=== PATIENT | female | born 1970 | race Caucasian/White ===

== ENCOUNTER → 2017-10-02 07:45 | Outpatient (CLI) | payer OTHER, SELFPAY ==
--- NOTE | 2017-10-02 07:48 | BI_ITS ---
MAMMOGRAPHY - BILATERAL SCREENING REASON FOR EXAM: Female, 47 years old. Routine annual screening examination. PERTINENT HISTORY: Aunt with breast cancer. TECHNIQUE: Digital bilateral breast noble (3D mammographic acquisition) in the CC and MLO projections. 2-D mediolateral oblique (MLO) and craniocaudad (CC) views of both breasts were obtained. CAD: Full Field Digital Mammography with Computer Added Detection was performed. COMPARISON: Comparison is made with prior study dated September 30, 2016 and September 22, 2015. FINDINGS: Breast Composition: The breasts are heterogeneously dense, which may obscure small masses. There are no dominant masses or suspicious calcifications. Stable benign appearing bilateral axillary lymph nodes. No other significant abnormalities are identified. There has been no significant change since the prior study. BI/SCREENING MAMM (CAD), BILAT IMPRESSION: Stable bilateral screening mammogram. Yearly follow-up mammogram recommended. (A) ASSESSMENT CATEGORY: BIRADS Category 2: Benign. A letter regarding these results will be sent to the patient by the facility within 30 days. Approximately 10% of breast cancers are not detected by mammography. A normal mammogram should not delay biopsy of a clinically suspicious abnormality. [id number] Electronically Signed: Conor Colon MD at 9:51 EDT Tel [phone], Service support ,
== END ==
PROVIDERS: Family Provider Family Medicine; PCP Family Medicine; Visit Provider Obstetrics & Gynecology
DX: Z12.31 Encounter for screening mammogram for malignant neoplasm of breast (principal); Z80.3 Family history of malignant neoplasm of breast
CPT/HCPCS: 77063; 77067

== ENCOUNTER → 2018-02-05 13:09 | Outpatient (CLI) | payer OTHER, SELFPAY ==
[2018-02-05 16:16] LABS: Absolute Lymphocyte Count 3.43 X10^3/ul (0.83-4.51); Absolute Neutrophil Count 6.8 X10^3/uL (2.0-7.7); Basophil# 0.03 X10^3/uL; Basophil% 0.3 % (0-1); Eosinophil# 0.15 X10^3/uL; Eosinophils% 1.4 % (0-5); Hematocrit 49.3 % (37-47); Hemoglobin 16.7 g/dl (12.0-15.0); Lymphocyte # 3.43 X10^3/ul (4.0); Lymphocyte % 31.1 % (19-41); Mean Corp Hgb Conc 33.9 g/gl (32-36); Mean Corpuscular Hgb 32.1 pg (27.0-32.0); Mean Corpuscular Volume 94.8 fL (81-99); Mean Platelet Vol. 10.2 fl (6.2-12.0); Monocyte# 0.61 X10^3/uL; Monocyte% 5.5 % (0-10); Neutrophil # 6.79 X10^3/uL (2.7-7.7); Neutrophil % 61.5 % (47-70); Platelet Count 253 K/mm3 (150-450); RBC Distribution Width CV 12.7 % (11.6-14.6); RBC Distribution Width SD 43.9 fl (35.1-43.9)
[2018-02-05 16:17] LABS: POSITIVE COUNT NO; POSITIVE DIFFERENTIAL NO; POSITIVE MORPHOLOGY NO
[2018-02-05 16:36] LABS: ALB/GLOB Ratio 1.1 RATIO (0.9-2.4); AST(SGOT) 58 U/L (15-37); Alanine Aminotransfer ALT/SGPT 105 U/L (13-56); Albumin, Serum 4.1 g/dL (3.2-5.0); Alkaline Phosphatase 78 U/L (45-117); Anion Gap 10 (5-15); BUN 13 mg/dL (7-18); Chloride 104 mmol/L (98-107); Creatinine, Serum 0.81 mg/dL (0.55-1.02); EST Glomerular Filtration Rate 81 mL/min (>60); Est Glom Filt Rate - Afr Amer 98 mL/min (>60); Globulin 3.9 g/dL (2.2-4.2); Glucose 89 mg/dL (74-106); Potassium 4.1 mmol/L (3.5-5.1); Sodium Level 137 mmol/L (136-145); T4 Free Direct 1.13 ng/dL (0.76-1.46); Thyroid Stim Hormone (TSH) 1.37 uIU/mL (0.358-3.74)
== END ==
PROVIDERS: Visit Provider Family Medicine
DX: R53.83 Other fatigue (principal); R10.9 Unspecified abdominal pain; L74.511 Primary focal hyperhidrosis, face
CPT/HCPCS: 36415; 80053; 84439; 84443; 84480; 85025

== ENCOUNTER → 2018-06-23 08:30 | Outpatient (CLI) | payer OTHER, SELFPAY ==
[2018-06-23 12:09] LABS: Absolute Lymphocyte Count 2.73 X10^3/ul (0.83-4.51); Absolute Neutrophil Count 5.9 X10^3/uL (2.0-7.7); Basophil# 0.04 X10^3/uL; Basophil% 0.4 % (0-1); Eosinophil# 0.16 X10^3/uL; Eosinophils% 1.7 % (0-5); Hematocrit 49.7 % (37-47); Hemoglobin 16.4 g/dl (12.0-15.0); Lymphocyte # 2.73 X10^3/ul (4.0); Lymphocyte % 28.9 % (19-41); Mean Corpuscular Hgb 31.1 pg (27.0-32.0); Mean Corpuscular Volume 94.1 fL (81-99); Mean Platelet Vol. 10.4 fl (6.2-12.0); Monocyte% 6.4 % (0-10); Neutrophil # 5.88 X10^3/uL (2.7-7.7); Neutrophil % 62.3 % (47-70); Platelet Count 301 K/mm3 (150-450); RBC Distribution Width CV 13.5 % (11.6-14.6); RBC Distribution Width SD 45.8 fl (35.1-43.9); Red Blood Count 5.28 M/mm3 (4.2-5.4); White Blood Count 9.4 K/mm3 (4.4-11.0)
[2018-06-23 12:12] LABS: POSITIVE COUNT NO; POSITIVE DIFFERENTIAL NO; POSITIVE MORPHOLOGY NO
[2018-06-23 12:52] LABS: AST(SGOT) 18 U/L (15-37); Alanine Aminotransfer ALT/SGPT 40 U/L (13-56); Albumin, Serum 3.7 g/dL (3.2-5.0); Alkaline Phosphatase 79 U/L (45-117); Amylase 39 U/L (25-115); Anion Gap 8 (5-15); BUN 11 mg/dL (7-18); BUN/Creat Ratio 14.2 RATIO (10-20); Calcium,Total 8.7 mg/dL (8.5-10.1); Chloride 106 mmol/L (98-107); Creatinine, Serum 0.78 mg/dL (0.55-1.02); EST Glomerular Filtration Rate 85 mL/min (>60); Est Glom Filt Rate - Afr Amer 103 mL/min (>60); Globulin 3.6 g/dL (2.2-4.2); Glucose 107 mg/dL (74-106); Lipase 176 U/L (73-393); Potassium 3.5 mmol/L (3.5-5.1); Protein, Total 7.3 g/dL (6.4-8.2); Sodium Level 140 mmol/L (136-145)
--- OUTSIDE RECORDS SUMMARY | 2018-08-25 09:00 | XMS RPT_ITS ---
:1970 Author Organization [facility] Care Team Providers Name Role Phone SOHAIL LIANG MD Attending Unavailable DR. LEXIS BENSON DO Primary Care Unavailable LOCO, KARLA PAC Admitting Unavailable LOCO, KARLA PAC Attending Unavailable LOCO, KARLA PAC Primary Care Unavailable LEXIS BENSON D.O Consulting Unavailable PROVIDER, UNKNOWN Consulting Unavailable WillieysAshaa Attending Unavailable Willieys Lexis Primary Care Unavailable Karen Izaguirre Attending Unavailable Karen Izaguirre Referring Unavailable Malys, Lexis Primary Care Unavailable Malys Lexis Attending Unavailable PROBLEMS PROBLEMS DATE TYPE CONDITION / CODE ATTENDING STATUS SOURCE 06/23/2018 Unknown R10.9 - Malys, Lexis Active [facility] Unspecified Community abdominal pain / Hospital R10.9(ICD-10) Repository 06/23/2018 Unknown R53.83 - Other Malys, Lexis Active [place] fatigue / Community R53.83(ICD-10) Hospital Repository 02/05/2018 Unknown 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, Lexis Active Sahil focal Community hyperhidrosis, Hospital face / Repository L74.511(ICD-10) PROCEDURES PROCEDURES No Procedure Records FoundRESULTS RESULTS CBC W/DIFF, AUTOMATED Collected: 06/23/2018 Status: F Source: [facility] 8:34 AM [facility] [place] TYPE CODE TESTS RESULT OUT OF RANGE REFERENCE UNITS LAB L100.1000 4.4-11.0 K/mm3 Normal WBC 9.4 LAB L100.1200 4.2-5.4 M/mm3 Normal RBC 5.28 LAB L100.1300 12.0-15.0 g/dl High HGB 16.4 LAB L100.1400 37-47 % High HCT 49.7 LAB L100.1500 81-99 fL Normal MCV 94.1 LAB L100.1600 27.0-32.0 pg Normal MCH 31.1 LAB L100.1700 32-36 g/gl Normal MCHC 33.0 LAB L100.1810 11.6-14.6 % Normal RDW CV 13.5 LAB L100.1820 35.1-43.9 fl High RDW SD 45.8 LAB L100.1900 150-450 K/mm3 Normal PLT 301 LAB L100.2000 6.2-12.0 fl Normal MPV 10.4 LAB L100.2100 47-70 % Normal NEUT% 62.3 LAB L100.2200 19-41 % Normal LY% 28.9 LAB L100.2300 0-10 % Normal MONO% 6.4 LAB L100.2400 0-5 % Normal EO% 1.7 LAB L100.2500 0-1 % Normal BASO% 0.4 LAB L100.2550 0.0-0.9 % Normal IM GRAN % 0.300 Result Comment: IG% - Immature Granulocytes (promyelocytes, myelocytes and metamyelocytes) > 1% indicates that a LEFT SHIFT is Present. LAB L100.2620 2.0-7.7 X10 3/uL Normal Absolute Neut 5.9 LAB L100.2720 0.83-4.51 X10 3/ul Normal Absolute Lymph 2.73 Performed By: #### L100.0100 #### [facility] [address] [place], [address] COMPREHENSIVE METABOLIC Collected: 06/23/2018 Status: F Source: [facility] 8:34 AM [facility] [place] TYPE CODE TESTS RESULT OUT OF RANGE REFERENCE UNITS LAB L501.0100 74-106 mg/dL High GLU 107 Result Comment: Fasting Glucose result from 100 to 125 mg/dL suggests IMPAIRED HOMEOSTASIS per A.D.A. criteria. Please note revised GLUCOSE reference range effective 2017. LAB L501.1000 7-18 mg/dL Normal BUN 11 LAB L501.1100 0.55-1.02 mg/dL Normal CREAT,SERUM 0.78 Result Comment: The validity of the calculated GFR AND GFRAA in patients over 70 years has not been determined. Clinical correlation is essential. LAB L501.1110 >60 mL/min Normal EST GFR 85 Result Comment: Non- GFR Calc LAB L501.1115 >60 mL/min Normal EST GFR - AA 103 Result Comment: GFR Calc LAB L501.1300 10-20 RATIO Normal BUN/CRE 14.2 LAB L501.1500 6.4-8.2 g/dL T Normal PROT 7.3 LAB L501.1800 3.2-5.0 g/dL Normal ALB 3.7 LAB L501.1950 2.2-4.2 g/dL Normal GLOB 3.6 LAB L501.2000 0.9-2.4 RATIO Normal A/G 1.0 LAB L501.2200 8.5-10.1 mg/dL CA Normal 8.7 LAB L501.4100 15-37 U/L Normal AST 18 LAB L501.4305 45-117 U/L Normal ALK P 79 LAB L501.4405 13-56 U/L Normal ALT 40 LAB L501.4600 0.20-1.00 mg/dL T Normal BILI 0.30 LAB L501.5300 136-145 mmol/L NA Normal 140 LAB L501.5600 3.5-5.1 mmol/L K Normal 3.5 LAB L501.5900 98-107 mmol/L CL Normal 106 LAB L501.6100 21.0-32.0 mmol/L Normal CO2 26.0 LAB L501.6200 5-15 Normal GAP 8 Performed By: #### L500.4050, L501.2400, L501.2450 #### [facility] [address] [place], [address] AMYLASE Collected: 06/23/2018 Status: F Source: [place] 8:34 AM [facility] [place] TYPE CODE TESTS RESULT OUT OF RANGE REFERENCE UNITS LAB L501.2400 25-115 U/L Normal TASHA 39 Performed By: #### L500.4050, L501.2400, L501.2450 #### [facility] [address] [place], [address] LIPASE Collected: 06/23/2018 Status: F Source: [place] 8:34 AM [facility] [place] TYPE CODE TESTS RESULT OUT OF RANGE REFERENCE UNITS LAB L501.2450 73-393 U/L Normal LIPASE 176 Performed By: #### L500.4050, L501.2400, L501.2450 #### [facility] [address] [place], [address] XR FLUORO < 1HR Observed: 04/03/2018 Status: F Source: [place] TECH TIME 6:08 PM [facility] REPOSITORY ORIGINAL Images acquired, not reported on this accession number. XR KNEE 1 OR 2 Observed: 04/03/2018 Status: F Source: [place] [employer] RIGHT 6:07 PM [facility] REPOSITORY ORIGINAL XR KNEE 1 OR 2 VIEWS RIGHT CLINICAL STATEMENT: Knee surgery. COMPARISON: None FINDINGS: Intraoperative fluoroscopy was provided to guide RIGHT knee surgery. 26.3 seconds of fluoroscopy time was used. Radiation dose: 1.3 mGy One spot image from fluoroscopy was saved. See operative note for additional details. Interpreted By: Nemesio Flores MD Preliminary Report By: Nemesio Flores MD Electronically Signed By: Nemesio Flores MD Dictated Date: 04/04/2018 4:27:16 AM Prelim Date: 04/04/2018 4:27:16 AM Sign Date: 04/04/2018 4:29:22 AM CHEST 2 VIEWS Observed: 03/25/2018 Status: F Source: RGSANDRA ZHENGMAVER[place] 11:51 AM [facility] REPOSITORY [place] [address] Patient: NARCISO AVILES Phone#: : 1970 Age: 47 Gender: F Pt. Type: Out Account: [id number] Location: [facility] Ordering: SOHAIL LIANG Exam Date: 03/25/2018/11:26 Family Phys: LEXIS BENSON Charge Code: 427863 Physician: Lasalle Order #: [id number] DLP Dose#: PROCEDURE: X-RAY CHEST 2 VIEWS COMPARISON: None. INDICATIONS: Surgery clearance FINDINGS: LUNGS: Normal. No significant pulmonary parenchymal abnormalities. VASCULATURE: Normal. Unremarkable pulmonary vasculature. CARDIAC: Normal. No cardiac silhouette abnormality or cardiomegaly. MEDIASTINUM: Normal. No visible mass or adenopathy. PLEURA: Normal. No effusion or pleural thickening. BONES: There are degenerative changes of the spine. OTHER: Negative. CONCLUSION: No acute disease. Dictated by: Joanne Tate MD on 03/25/2018 at 12:36 Approved by: Joanne Tate MD on 03/25/2018 at 12:36 BMP WITH EGFR Collected: 03/25/2018 Status: F Source: RG [place] 11:23 AM [facility] REPOSITORY TYPE CODE TESTS RESULT OUT OF RANGE REFERENCE UNITS LAB BMP with eGFR(LOINC) BMP with eGFR Result Comment: BASIC METABOLIC PANEL LAB SODIUM(LOINC) 136 - 145 mmol/l SODIUM Low 134 LAB POTASSIUM(LOINC) 3.5 - 5.1 mmol/L POTASSIUM 4.0 LAB CHLORIDE(LOINC) 98 - 107 mmol/L CHLORIDE Low 97 LAB CO2(LOINC) 21.0 - mmol/L 31.0 CO2 29.1 LAB GLUCOSE(LOINC) 74 - 106 mg/dl GLUCOSE 104 LAB BUN(LOINC) 6 - 20 mg/dl BUN 14 LAB CREATININE(LOINC) 0.6 - 1.2 mg/dl CREATININE 0.8 LAB CALCIUM(LOINC) 8.6 - mg/dl 10.2 CALCIUM 10.2 LAB ANION GAP(LOINC) 10 - 20 mmol/L ANION GAP 12 LAB AGE(LOINC) years AGE 47 LAB eGFR(LOINC) 60 - 999 ML/MINUTE eGFR >60 LAB eGFR(AA)(LOINC) 60 - 999 ML/MINUTE eGFR(AA) >60 Result Comment: ACCORDING TO THE NATIONAL KIDNEY DISEASE EDUCATION PROGRAM(NKDE), A NORMAL eGFR IS A VALUE GREATER THAN OR EQUAL TO 60 ML/MIN/1.73 SQ METERS. CHRONIC KIDNEY DISEASE: <60mL/MIN/1.73 SQ METERS KIDNEY FAILURE: <15mL/MIN/1.73 SQ METERS THIS TEST SHOULD ONLY BE USED FOR PATIENTS 18 YEARS OF AGE AND OLDER. Performed By: #### [id number] #### [facility] [id number] CBC Collected: 03/25/2018 Status: F Source: RG FRIES 11:23 AM [facility] REPOSITORY TYPE CODE TESTS RESULT OUT OF RANGE REFERENCE UNITS LAB CBC(LOINC) CBC Result Comment: CBC-COMPLETE BLOOD COUNT LAB WBC(LOINC) 4.5 - 10.8 x 10EE3/UL WBC High 11.8 LAB RBC(LOINC) 4.10 - x 10EE6/UL 5.30 RBC High 5.46 LAB HEMOGLOBIN(LOINC 12.0 - g/dl ) 16.0 High HEMOGLOBIN 17.4 LAB HEMATOCRIT(LOINC 34.0 - % ) 46.0 High HEMATOCRIT 50.9 LAB MCV(LOINC) 80 - 99 fl MCV 93 LAB MCH(LOINC) 27 - 33 pg MCH 32 LAB MCHC(LOINC) 32 - 36 X10 3 MCHC 34 LAB RDW/CV(LOINC) 12.0 - % 15.6 RDW/CV 13.1 LAB PLATELET(LOINC) 150 - 450 x10EE3/UL PLATELET 269 LAB MPV(LOINC) 6.6 - 10.5 fl MPV 8.7 Result Comment: AUTOMATED DIFFERENTIAL LAB NEUT %(LOINC) 46.0 - 76.0 % NEUT % 61.7 LAB LYMPH %(LOINC) 20.0 - 45.0 % LYMPH % 28.4 LAB MONOS %(LOINC) 0.0 - 10.0 % MONOS % 8.2 LAB EO %(LOINC) 0.0 - 7.0 % EO % 1.0 LAB BASO %(LOINC) 0.0 - 2.0 % BASO % 0.7 LAB Lymph #(LOINC) 0.80 - 2.80 x10EE3/U L Lymph # High 3.40 LAB Neut #(LOINC) 1.50 - 7.10 x10EE3/U L Neut # High 7.30 LAB Sabine #(LOINC) 0.20 - 1.00 x10EE3/U L Sabine # 1.00 LAB EO #(LOINC) 0.00 - 0.50 x10EE3/U L EO # 0.10 LAB Baso #(LOINC) 0.00 - 0.10 x10EE3/U L Baso # 0.10 LAB MANUAL DIFF(LOINC) MANUAL DIFF N/A LAB MORPHOLOGY(LOINC ) MORPHOLOGY N/A Result Comment: {CD] Performed By: #### [id number] #### [facility],[address] [place] [address] CBC W/DIFF, AUTOMATED Collected: 02/05/2018 Status: F Source: [place] 1:14 PM [facility] [place] [place] TYPE CODE TESTS RESULT OUT OF RANGE REFERENCE UNITS LAB L100.1000 4.4-11.0 K/mm3 Normal WBC 11.0 LAB L100.1200 4.2-5.4 M/mm3 Normal RBC 5.20 LAB L100.1300 12.0-15.0 g/dl High HGB 16.7 LAB L100.1400 37-47 % High HCT 49.3 LAB L100.1500 81-99 fL Normal MCV 94.8 LAB L100.1600 27.0-32.0 pg High MCH 32.1 LAB L100.1700 32-36 g/gl Normal MCHC 33.9 LAB L100.1810 11.6-14.6 % Normal RDW CV 12.7 LAB L100.1820 35.1-43.9 fl Normal RDW SD 43.9 LAB L100.1900 150-450 K/mm3 Normal PLT 253 LAB L100.2000 6.2-12.0 fl Normal MPV 10.2 LAB L100.2100 47-70 % Normal NEUT% 61.5 LAB L100.2200 19-41 % Normal LY% 31.1 LAB L100.2300 0-10 % Normal MONO% 5.5 LAB L100.2400 0-5 % Normal EO% 1.4 LAB L100.2500 0-1 % Normal BASO% 0.3 LAB L100.2550 0.0-0.9 % Normal IM GRAN % 0.200 Result Comment: IG% - Immature Granulocytes (promyelocytes, myelocytes and metamyelocytes) > 1% indicates that a LEFT SHIFT is Present. LAB L100.2620 2.0-7.7 X10 3/uL Normal Absolute Neut 6.8 LAB L100.2720 0.83-4.51 X10 3/ul Normal Absolute Lymph 3.43 Performed By: #### L100.0100 #### [facility] [place], [address] COMPREHENSIVE METABOLIC Collected: 02/05/2018 Status: F Source: [facility] 1:14 PM [facility] [place] TYPE CODE TESTS RESULT OUT OF RANGE REFERENCE UNITS LAB L501.0100 74-106 mg/dL Normal GLU 89 Result Comment: Please note revised GLUCOSE reference range effective 2017. LAB L501.1000 7-18 mg/dL Normal BUN 13 LAB L501.1100 0.55-1.02 mg/dL Normal CREAT,SERUM 0.81 Result Comment: The validity of the calculated GFR AND GFRAA in patients over 70 years has not been determined. Clinical correlation is essential. LAB L501.1110 >60 mL/min Normal EST GFR 81 Result Comment: Non- GFR Calc LAB L501.1115 >60 mL/min Normal EST GFR - AA 98 Result Comment: GFR Calc LAB L501.1300 10-20 RATIO Normal BUN/CRE 16.0 LAB L501.1500 6.4-8.2 g/dL T Normal PROT 8.0 LAB L501.1800 3.2-5.0 g/dL Normal ALB 4.1 LAB L501.1950 2.2-4.2 g/dL Normal GLOB 3.9 LAB L501.2000 0.9-2.4 RATIO Normal A/G 1.1 LAB L501.2200 8.5-10.1 mg/dL CA Normal 9.0 LAB L501.4100 15-37 U/L High AST 58 Result Comment: Slight Hemolysis, Result may be falsely increased. LAB L501.4305 45-117 U/L Normal ALK P 78 LAB L501.4405 13-56 U/L High ALT 105 LAB L501.4600 0.20-1.00 mg/dL Normal T BILI 0.50 LAB L501.5300 136-145 mmol/L Normal NA 137 LAB L501.5600 3.5-5.1 mmol/L Normal K 4.1 Result Comment: Slight Hemolysis, Result may be falsely increased. LAB L501.5900 98-107 mmol/L Normal CL 104 LAB L501.6100 21.0-32.0 mmol/L Normal CO2 23.0 LAB L501.6200 5-15 Normal GAP 10 Performed By: #### L500.4050, L501.9520, L506.0400 #### [facility] [address] [facility] [place], [address] THYROID STIM HORMONE Collected: 02/05/2018 Status: F Source: [place] (TSH) 1:14 PM [facility] [place] TYPE CODE TESTS RESULT OUT OF RANGE REFERENCE UNITS LAB L501.9520 0.358-3.74 uIU/mL Normal TSH 1.37 Performed By: #### L500.4050, L501.9520, L506.0400 #### [facility] [address] [facility], [address] T4 FREE DIRECT Collected: 02/05/2018 Status: F Source: [place] 1:14 PM [facility] [place] TYPE CODE TESTS RESULT OUT OF RANGE REFERENCE UNITS LAB L506.0400 0.76-1.46 ng/dL Normal T4 FREE 1.13 DIRECT Performed By: #### L500.4050, L501.9520, L506.0400 #### [facility] [address] [facility], [address] T3 TOTAL - TRIIODOTHYRONINE Collected: 02/05/2018 Status: F Source: [place] 1:14 PM [facility] TYPE CODE TESTS RESULT OUT OF RANGE REFERENCE UNITS LAB L501.9186 0.6-1.81 ng/mL Normal T3 Total 1.20 Performed By: #### L501.9186 #### [facility] [place], [address] SCREENING MAMM (CAD), Observed: 10/02/2017 Status: F Source: [facility] [place] 7:48 AM [facility] [place] [place] [facility] Imaging Services [address] [place] [address] [place] [address] SCREENING MAMM (CAD), BILAT MR#: [id number] Acct: [id number] Name: NARCISO AVILES Rep #: [id number] : 1970 F 47 From: Conor Colon MD PCP: Lexis Benson DO Status: REG CLI Study: SCREENING MAMM (CAD), BILAT Date of Exam: 10/02/17 Exam# [id number] Ordering Dr: Karen Izaguirre MD MAMMOGRAPHY - BILATERAL SCREENING REASON FOR EXAM: Female, 47 years old. Routine annual screening examination. PERTINENT HISTORY: Aunt with breast cancer. TECHNIQUE: Digital bilateral breast noble (3D mammographic acquisition) in the CC and MLO projections. 2-D mediolateral oblique (MLO) and craniocaudad (CC) views of both breasts were obtained. CAD: Full Field Digital Mammography with Computer Added Detection was performed. COMPARISON: Comparison is made with prior study dated September 30, 2016 and September 22, 2015. FINDINGS: Breast Composition: The breasts are heterogeneously dense, which may obscure small masses. There are no dominant masses or suspicious calcifications. Stable benign appearing bilateral axillary lymph nodes. No other significant abnormalities are identified. There has been no significant change since the prior study. BI/SCREENING MAMM (CAD), BILAT IMPRESSION: Stable bilateral screening mammogram. Yearly follow-up mammogram recommended. (A) ASSESSMENT CATEGORY: BIRADS Category 2: Benign. A letter regarding these results will be sent to the patient by the facility within 30 days. Approximately 10% of breast cancers are not detected by mammography. A normal mammogram should not delay biopsy of a clinically suspicious abnormality. [id number] Electronically Signed: Conor Colon MD at 9:51 EDT Tel [phone], Service support , CC: Lexis Benson DO; Karen Izaguirre MD Paraprofessional Aide: Signed CNPMac Observed: 09/05/2017 Status: COMPLETED Source: [place] 12:00 AM [facility] REPOSITORY Telephone (ASWSTR) NARCISO AVILES ([id number]) 1970 F Date Time Provider Department 09/05/17 LEXIS BENSON ASWSTR During your visit today, we recorded the following information about you: Bay Parrasummer 09/05/2017 2:43 PM Addendum Spoke with patient states she needs to have a colonoscopy done at least every three years due to having family history of colon cancer, scheduled her for a consultation with Tayla Navas on 09/08/2017, patient wants to have Dr. Prado do her procedure Bay Palomares Allergies As of Date: 09/05/2017 (Not on File) Date Reviewed: Never Reviewed Reason for Visit: Colonoscopy Consultation [Other] Problem List As Of Date: 09/05/2017 (None) Encounter Status:Closed by BAY PALOMARES on 09/05/17 ALLERGIES ALLERGIES DATE TYPE / CODE NAME / CODE REACTION SEVERITY SOURCE 03/11/2016 Drug Penicillins/W58059 Rash Unknown [place] Allergy/416 0476(RXNORM) [facility] 481610([facility] ED CT) Repository Drug PENICILLINS Moderate [facility] [place] Allergy/416 (CLASS)/[id number](R ([facility] 779764[facility] Modifier) [facility] ED CT) (Qualifier Repository Value) ENCOUNTERS ENCOUNTERS ADMIT/DISCHARGE ACCOUNT NUMBER ADMITTING ENCOUNTER LOCATION SOURCE CLASS 06/23/2018 [id number] Ambulatory [facility] ding:BFHLAB Repository 04/03/2018/04/03/20 [id number] [facility] Repository 03/25/2018/03/25/20 [id number] LOCO, Ambulatory [facility] [place] 18 [facility] Repository 02/05/[id number] [facility] ding:BFHLAB Repository 10/02/[id number] [facility] ding:OPBI Repository PAYERS PAYERS ENCOUNTER GUARANTOR PAYER SUBSCRIBER SOURCE 06/23/2018 NARCISO [place] [facility] Hamzah Baxter [id number] Insurance:MEDICAL CarpenterDOB: [facility], [place] [id number], Number: Repository [place] [id number]: [id number] Date:2003-07-53[address] () [address] [address]WP: 06/23/2018 [facility]SELF [facility] Number: Effective Repository Date:2018-06-23 04/03/2018 NARCISO [place] [facility] HAMZAH [facility] CARPENTERDOB: Insurance:MEDICAL CARPENTERDOB: [facility] [id number] [id number] Repository BOX Number: [address] [place] [address], [id number] [address] [place] [address]Inp: Date:2018-03-31 [place] [address]Xgz: [id number] () Name:[facility] BOX ()Tel: [phone], [place] [phone] [address]OJ: 03/25/2018 NARCISO [facility] HAMZAH Shiv Diez Jo-Ann CARPENTERDOB: Insurance:MEDICAL CARPENTERDOB: [facility] [id number] [id number] BOX Repository [address] [place] [address], Number: [address] [place] [address] [id number] [place] [id number]: Date:Plan Name: () 02/05/2018 NARCISO [facility] Hamzah Baxter [id number] Insurance:MEDICAL CarpenterDOB: [facility] [place] [place] [id number], Number: [place]ository [place] [id number]: [id number] Date:5926-19-25EE [address] () [address] [address]UR: 02/05/2018 Secondary NOT GIVENUNK Sahil Insurance:SELF PAY [facility] Number: Effective Repository Date:2018-02-05 10/02/2017 NARCISO M Primary Hamzah A Sah[place] [id number] Insurance:MEDICAL Carpst. francis hospitalD[facility]: [facility] [place] [id number], Number: Repository [place] [id number]: [id number] Date:1368-11-33VD [address] () [address] [address]WG: 10/02/2017 Secondary NOT GIVENUNK Sahil Insurance:SELF PAY [facility] Number: Effective Repository Date:2017-09-05
== END ==
PROVIDERS: Family Provider Family Medicine; PCP Family Medicine; Visit Provider Family Medicine
DX: R10.9 Unspecified abdominal pain (principal); R53.83 Other fatigue
CPT/HCPCS: 36415; 80053; 82150; 83690; 85025

== ENCOUNTER → 2018-10-03 07:12 | Outpatient (CLI) | payer OTHER, SELFPAY ==
[2018-07-09 08:56] VITALS: BMI 31.7
--- NOTE | 2018-10-03 07:13 | BI_ITS ---
MAMMOGRAPHY - BILATERAL SCREENING 3-D TOMOSYNTHESIS REASON FOR EXAM: Female, 48 years old. Bilateral Screening 3-D tomosynthesis PERTINENT HISTORY: Maternal aunt at age 60, cousin at age 40 with breast cancer. Injury to right upper outer quadrant-resolved today. No symptoms.. TECHNIQUE: 2-D mammograms and 3-D Tomosynthesis of the breast (s) were performed. CAD was performed. COMPARISON: October 02, 2017. FINDINGS: The breast composition is heterogeneously dense that can obscure small breast masses. Scattered benign calcifications are seen. No dense spiculated masses or suspicious microcalcifications are identified. No architectural distortion is identified. There is no skin thickening or retraction. There has been no significant change since the prior study. BI/SCREEN MAMM (CAD) W/LOUIS BILAT IMPRESSION: No mammographic signs of malignancy. Routine yearly mammograms recommended. ASSESSMENT CATEGORY: BIRADS Category 1: Negative. A letter regarding these results will be sent to the patient by the facility within 30 days. FOLLOW UP RECOMMENDATION: Yearly follow up mammogram recommended. (A) Approximately 10% of breast cancers are not detected by mammography. A normal mammogram should not delay biopsy of a clinically suspicious abnormality. Electronically Signed: Juaquin Lozano MD at 9:30 EDT , Service support ,
== END ==
PROVIDERS: Family Provider Family Medicine; PCP Family Medicine; Referring Provider Obstetrics & Gynecology; Visit Provider Obstetrics & Gynecology
DX: Z12.31 Encounter for screening mammogram for malignant neoplasm of breast (principal)
CPT/HCPCS: 77063; 77067

== ENCOUNTER → 2018-11-19 12:59 | Outpatient (CLI) | payer OTHER, SELFPAY ==
[2018-07-09 08:56] VITALS: BMI 31.7
[2018-11-19 15:25] LABS: Absolute Lymphocyte Count 2.75 X10^3/ul (0.83-4.51); Absolute Neutrophil Count 8.9 X10^3/uL (2.0-7.7); Basophil# 0.03 X10^3/uL; Basophil% 0.2 % (0-1); Eosinophil# 0.14 X10^3/uL; Eosinophils% 1.1 % (0-5); Hematocrit 49.3 % (37-47); Hemoglobin 16.7 g/dl (12.0-15.0); Lymphocyte # 2.75 X10^3/ul (4.0); Lymphocyte % 22.1 % (19-41); Mean Corp Hgb Conc 33.9 g/gl (32-36); Mean Corpuscular Volume 91.5 fL (81-99); Monocyte# 0.61 X10^3/uL; Monocyte% 4.9 % (0-10); Neutrophil # 8.87 X10^3/uL (2.7-7.7); Neutrophil % 71.3 % (47-70); POSITIVE COUNT NO; POSITIVE DIFFERENTIAL NO; POSITIVE MORPHOLOGY NO; Platelet Count 285 K/mm3 (150-450); RBC Distribution Width CV 13.3 % (11.6-14.6); RBC Distribution Width SD 44.1 fl (35.1-43.9); Red Blood Count 5.39 M/mm3 (4.2-5.4); White Blood Count 12.5 K/mm3 (4.4-11.0)
[2018-11-19 15:52] LABS: AST(SGOT) 27 U/L (15-37); Alanine Aminotransfer ALT/SGPT 59 U/L (13-56); Alkaline Phosphatase 80 U/L (45-117); Anion Gap 9 (5-15); BUN 16 mg/dL (7-18); BUN/Creat Ratio 21.1 RATIO (10-20); Calcium,Total 9.2 mg/dL (8.5-10.1); Chloride 104 mmol/L (98-107); Cholesterol 279 mg/dL (200); Creatinine, Serum 0.76 mg/dL (0.55-1.02); EST Glomerular Filtration Rate 87 mL/min (>60); Est Glom Filt Rate - Afr Amer 106 mL/min (>60); Globulin 3.9 g/dL (2.2-4.2); Glucose 102 mg/dL (74-106); High Density Lipoprotein 35 mg/dL; Potassium 3.7 mmol/L (3.5-5.1); Protein, Total 7.9 g/dL (6.4-8.2); Sodium Level 138 mmol/L (136-145); Thyroid Stim Hormone (TSH) 1.28 uIU/mL (0.358-3.74); Triglycerides 262 mg/dL; Very Low Density Lipoprotein 52 mg/dL (5-40)
== END ==
PROVIDERS: Family Provider Family Medicine; PCP Family Medicine; Visit Provider Family Medicine
DX: E78.5 Hyperlipidemia, unspecified (principal); R53.83 Other fatigue
CPT/HCPCS: 36415; 80053; 80061; 84443; 85025

== ENCOUNTER → 2019-03-11 12:05 | Outpatient (CLI) | payer OTHER, SELFPAY ==
[2018-07-09 08:56] VITALS: BMI 31.7
[2019-03-11 16:13] LABS: Absolute Lymphocyte Count 3.17 X10^3/uL (0.83-4.51); Absolute Neutrophil Count 7.2 X10^3/uL (2.0-7.7); Basophil# 0.07 X10^3/uL; Basophil% 0.6 % (0-1); Eosinophil# 0.14 X10^3/uL; Eosinophils% 1.2 % (0-5); Hemoglobin 16.9 g/dL (12.0-15.0); Lymphocyte # 3.17 X10^3/ul (4.0); Lymphocyte % 28.2 % (19-41); Mean Corp Hgb Conc 33.1 g/dL (32-36); Mean Corpuscular Hgb 32.3 pg (27.0-32.0); Mean Corpuscular Volume 97.3 fL (81-99); Mean Platelet Vol. 9.9 fl (6.2-12.0); Monocyte# 0.61 X10^3/uL; Monocyte% 5.4 % (0-10); NRBC Flagged by Analyzer 0 % (0-5); Neutrophil # 7.21 X10^3/uL (2.7-7.7); Neutrophil % 64.1 % (47-70); Platelet Count 304 K/mm3 (150-450); RBC Distribution Width SD 46.9 fl (35.1-43.9); Red Blood Count 5.24 M/mm3 (4.2-5.4); White Blood Count 11.3 K/mm3 (4.4-11.0)
[2019-03-11 16:31] LABS: ALB/GLOB Ratio 1.2 RATIO (0.9-2.4); AST(SGOT) 25 U/L (15-37); Alanine Aminotransfer ALT/SGPT 58 U/L (13-56); Albumin, Serum 4.3 g/dL (3.2-5.0); Alkaline Phosphatase 80 U/L (45-117); Anion Gap 8 (5-15); BUN 13 mg/dL (7-18); BUN/Creat Ratio 17.3 RATIO (10-20); Chloride 105 mmol/L (98-107); Creatinine, Serum 0.75 mg/dL (0.55-1.02); EST Glomerular Filtration Rate 88 mL/min (>60); Est Glom Filt Rate - Afr Amer 106 mL/min (>60); Globulin 3.5 g/dL (2.2-4.2); Glucose 98 mg/dL (74-106); Protein, Total 7.8 g/dL (6.4-8.2); Sodium Level 139 mmol/L (136-145)
== END ==
PROVIDERS: Family Provider Family Medicine; PCP Family Medicine; Visit Provider Family Medicine
DX: Z51.81 Encounter for therapeutic drug level monitoring (principal); D69.2 Other nonthrombocytopenic purpura
CPT/HCPCS: 36415; 80053; 85025; 85610

== ENCOUNTER → 2019-07-01 08:48 | Outpatient (CLI) | payer OTHER, SELFPAY ==
[2019-05-31 10:17] VITALS: BMI 31.7
[2019-07-01 12:29] LABS: Erythrocyte Sedimentation Rate 13 mm/hr (0-20)
[2019-07-01 12:31] LABS: Absolute Lymphocyte Count 2.72 X10^3/uL (0.83-4.51); Absolute Neutrophil Count 7.4 X10^3/uL (2.0-7.7); Basophil# 0.05 X10^3/uL; Basophil% 0.5 % (0-1); Eosinophils% 0.9 % (0-5); Hematocrit 49.8 % (37-47); Hemoglobin 16.3 g/dL (12.0-15.0); Lymphocyte # 2.72 X10^3/ul (4.0); Lymphocyte % 24.9 % (19-41); Mean Corp Hgb Conc 32.7 g/dL (32-36); Mean Corpuscular Hgb 30.6 pg (27.0-32.0); Mean Corpuscular Volume 93.4 fL (81-99); Monocyte# 0.62 X10^3/uL; Monocyte% 5.7 % (0-10); NRBC Flagged by Analyzer 0 % (0-5); Neutrophil # 7.39 X10^3/uL (2.7-7.7); Neutrophil % 67.6 % (47-70); Platelet Count 315 K/mm3 (150-450); RBC Distribution Width CV 13.2 % (11.6-14.6); RBC Distribution Width SD 45.1 fl (35.1-43.9); Red Blood Count 5.33 M/mm3 (4.2-5.4); White Blood Count 10.9 K/mm3 (4.4-11.0)
[2019-07-01 12:48] LABS: ALB/GLOB Ratio 1.2 RATIO (0.9-2.4); AST(SGOT) 23 U/L (15-37); Alanine Aminotransfer ALT/SGPT 42 U/L (13-56); Albumin, Serum 4.4 g/dL (3.2-5.0); Alkaline Phosphatase 85 U/L (45-117); Anion Gap 7 (5-15); BUN 10 mg/dL (7-18); BUN/Creat Ratio 10.2 RATIO (10-20); CRP 3.59 mg/L (0.0-3.0); Calcium,Total 9.4 mg/dL (8.5-10.1); Chloride 103 mmol/L (98-107); Creatinine, Serum 0.98 mg/dL (0.55-1.02); EST Glomerular Filtration Rate 64 mL/min (>60); Est Glom Filt Rate - Afr Amer 78 mL/min (>60); Globulin 3.7 g/dL (2.2-4.2); Glucose 107 mg/dL (74-106); Potassium 3.8 mmol/L (3.5-5.1); Protein, Total 8.1 g/dL (6.4-8.2); Sodium Level 136 mmol/L (136-145)
== END ==
PROVIDERS: PCP Family Medicine; Visit Provider Family Medicine
DX: L03.115 Cellulitis of right lower limb (principal); L02.415 Cutaneous abscess of right lower limb; Z96.651 Presence of right artificial knee joint
CPT/HCPCS: 36415; 80053; 85025; 85652; 86140

== ENCOUNTER → 2019-10-05 07:01 | Outpatient (CLI) | payer OTHER, SELFPAY ==
[2019-05-31 10:17] VITALS: BMI 31.7
--- NOTE | 2019-10-05 07:03 | BI_ITS ---
MAMMOGRAPHY - BILATERAL SCREENING REASON FOR EXAM: Female, 49 years old. Routine annual screening examination. PERTINENT HISTORY: Aunt with breast cancer. TECHNIQUE: Digital bilateral breast louis (3D mammographic acquisition) in the CC and MLO projections. 2-D mediolateral oblique (MLO) and craniocaudad (CC) views of both breasts were obtained. CAD: Full Field Digital Mammography with Computer Added Detection was performed. COMPARISON: Comparison is made with prior examination dated October 03, 2018 and October 02, 2017. FINDINGS: Breast Composition: There are scattered areas of fibroglandular density. There are no dominant masses or suspicious calcifications. Stable benign-appearing bilateral axillary lymph nodes. No other significant abnormalities are identified. There has been no significant change since the prior study. BI/SCREEN MAMM (CAD) W/LOUIS BILAT IMPRESSION: Stable bilateral screening mammogram. Yearly follow-up mammogram recommended. (A) ASSESSMENT CATEGORY: BIRADS Category 2: Benign. A letter regarding these results will be sent to the patient by the facility within 30 days. Approximately 10% of breast cancers are not detected by mammography. A normal mammogram should not delay biopsy of a clinically suspicious abnormality. [id number] Electronically Signed: Conor Colon, at 8:24 EDT , Service support ,
== END ==
PROVIDERS: PCP Family Medicine; Referring Provider Family Medicine; Visit Provider Family Medicine
DX: Z12.31 Encounter for screening mammogram for malignant neoplasm of breast (principal)
CPT/HCPCS: 77063; 77067

== ENCOUNTER → 2020-05-03 08:28 | Outpatient (CLI) | payer OTHER, SELFPAY ==
[2019-05-31 10:17] VITALS: BMI 31.7
--- NOTE | 2020-05-03 08:46 | RAD_ITS ---
STUDY: X-RAY CHEST REASON FOR EXAM: Female, 49 years old. COUGH, MILD CHEST PAIN TECHNIQUE: 2 views COMPARISON: Prior chest radiograph of 04/21/2015 FINDINGS: The lungs are clear and expanded. There is no demonstrated pleural abnormality. Normal size heart. Normal mediastinum and cali. Normal visualized pulmonary arteries. Normal visualized aortic arch and descending thoracic aorta. Minimal degenerative changes of the thoracic spine. Normal visualized ribs, clavicles, and shoulders. There is no demonstrated abnormality of the visualized soft tissue structures of the upper abdomen. RAD/Chest PA and Lateral IMPRESSION: No acute cardiopulmonary findings or changes. Negative for new consolidation, focal atelectasis, pleural effusion or cardiomegaly. Electronically Signed: Shannon Dobbs MD at 16:50 EST , Service support ,
[2020-05-03 12:37] LABS: Absolute Lymphocyte Count 2.87 X10^3/uL (0.83-4.51); Absolute Neutrophil Count 6.1 X10^3/uL (2.0-7.7); Basophil# 0.04 X10^3/uL; Basophil% 0.4 % (0-1); Eosinophil# 0.18 X10^3/uL; Eosinophils% 1.8 % (0-5); Hematocrit 50.2 % (37-47); Hemoglobin 15.8 g/dL (12.0-15.0); Lymphocyte # 2.87 X10^3/ul (4.0); Lymphocyte % 29.5 % (19-41); Mean Corp Hgb Conc 31.5 g/dL (32-36); Mean Corpuscular Hgb 29.9 pg (27.0-32.0); Mean Corpuscular Volume 94.9 fL (81-99); Mean Platelet Vol. 10.3 fl (6.2-12.0); Monocyte% 5.1 % (0-10); NRBC Flagged by Analyzer 0 % (0-5); Neutrophil # 6.11 X10^3/uL (2.7-7.7); Neutrophil % 62.8 % (47-70); Platelet Count 266 K/mm3 (150-450); RBC Distribution Width CV 13.5 % (11.6-14.6); RBC Distribution Width SD 47.8 fl (35.1-43.9); Red Blood Count 5.29 M/mm3 (4.2-5.4); White Blood Count 9.7 K/mm3 (4.4-11.0)
[2020-05-03 12:58] LABS: Vitamin D,25 Hydroxy 12.1 ng/mL
[2020-05-03 13:07] LABS: ALB/GLOB Ratio 1.2 RATIO (0.9-2.4); AST(SGOT) 70 U/L (15-37); Alanine Aminotransfer ALT/SGPT 133 U/L (13-56); Albumin, Serum 4.2 g/dL (3.2-5.0); Alkaline Phosphatase 103 U/L (45-117); Anion Gap 9 (5-15); BUN 11 mg/dL (7-18); BUN/Creat Ratio 13.3 RATIO (10-20); Calcium,Total 9.3 mg/dL (8.5-10.1); Chloride 101 mmol/L (98-107); Creatinine, Serum 0.82 mg/dL (0.55-1.02); EST Glomerular Filtration Rate 79 mL/min (>60); Est Glom Filt Rate - Afr Amer 95 mL/min (>60); Free T3 2.8 pg/mL (2.18-3.98); Globulin 3.6 g/dL (2.2-4.2); Glucose 131 mg/dL (74-106); LDH 243 U/L (84-246); Potassium 3.8 mmol/L (3.5-5.1); Protein, Total 7.8 g/dL (6.4-8.2); Sodium Level 136 mmol/L (136-145); T4 Free Direct 1.26 ng/dL (0.76-1.46); Thyroid Stim Hormone (TSH) 1.43 uIU/mL (0.358-3.74)
[2020-05-04 12:49] LABS: Hemoglobin A1c 5.3 % (3.8-5.6)
== END ==
PROVIDERS: PCP Family Medicine; Referring Provider Family Medicine; Visit Provider Family Medicine
DX: R05 Cough (principal); R07.9 Chest pain, unspecified; R73.09 Other abnormal glucose
CPT/HCPCS: 36415; 71046; 80053; 82306; 83036; 83615; 84439; 84443; 84481; 85025

== ENCOUNTER → 2020-05-29 20:34 | Outpatient (CLI) | payer OTHER, SELFPAY ==
[2019-05-31 10:17] VITALS: BMI 31.7
== END ==
PROVIDERS: PCP Family Medicine; Referring Provider Family Medicine; Visit Provider Family Medicine
DX: G47.10 Hypersomnia, unspecified (principal); R53.83 Other fatigue; I10 Essential (primary) hypertension
CPT/HCPCS: 95810

== ENCOUNTER → 2020-07-06 15:19 | Outpatient (CLI) | payer OTHER, SELFPAY ==
[2020-07-06 14:35] VITALS: BMI 34.2
[2020-07-06 16:42] LABS: Estradiol < 11.0 pg/mL; Follicle Stimulating Hormone 49.6 mIU/mL
== END ==
PROVIDERS: PCP Family Medicine; Referring Provider Obstetrics & Gynecology; Visit Provider Obstetrics & Gynecology
DX: N95.1 Menopausal and female climacteric states (principal)
CPT/HCPCS: 36415; 82670; 83001

== ENCOUNTER 2020-07-28 23:01 | Emergency (ER) | payer OTHER, SELFPAY ==
[2020-07-26 09:12] VITALS: BMI 32.8
[2020-07-28 23:02] VITALS: BP 133/86; PULSE 89; RESP 16; TEMP 36.6; O2SAT 99; BMI 32.6
--- NOTE | 2020-07-28 23:20 | EKG12_ITS ---
Test Reason : MENTAL HEALTH Blood Pressure : / mmHG Vent. Rate : 068 BPM Atrial Rate : 068 BPM P-R Int : 164 ms QRS Dur : 078 ms QT Int : 434 ms P-R-T Axes : 041 013 021 degrees QTc Int : 461 ms Normal sinus rhythm Normal ECG Confirmed by [place] UMANZOR, MARK ([id number]), editor in chief newspaper LULA DE OLIVEIRA ([id number]) on 07/31/2020 10:11:13 AM Referred By: LO Confirmed By:MARK MCPHERSON MD
--- NOTE | 2020-07-28 23:20 | ED.VIS.GEN ---
History of Present Illness Chief Complaint: Mental Health Informant: Patient Onset: Days Context: Gradual Onset Timing: Continuous Current Severity: Moderate Maximum Severity: Severe Narrative: The patient is a 49-year-old female with history of anxiety and depression who presents to the emergency department by [facility] department after suicidal gesture. Patient is awake and alert. She states that she is to the point where she has had thoughts that she does not want to go on living. She had made some threats to family and left her house. Family was able to find her and called police. On police arrival, the patient was found in her car with it running. There was an apple shoved in her exhaust. She did make multiple threats of suicide to police. She does admit to increased suicidality, but states she does not know if she would go through with it. She states that she has been seriously depressed since her father 4 years ago. Prior similar symptoms: Yes Recent Illness/Hospitalization: No Past Medical History - Allergies and Home Meds Allergies/Adverse Reactions: Allergies acetaminophen [From Vicodin] Allergy (Verified 07/28/20 23:08) Unknown hydrocodone [From Vicodin] Allergy (Verified 07/28/20 23:08) Unknown Penicillins [PCN] Allergy (Verified 07/28/20 23:08) Rash Primary Care Physician: Lexis Bneson DO [Primary Care Provider] - Prior records reviewed: Yes Past Medical History: - - Depression anxiety, hypertension Surgical History: noncontributory Smoking Status: Unknown if ever smoked Review of Systems General: Denies: Chills, Fever, Sweats Eyes: Denies: Visual changes - bilaterally, Diplopia ENT: Denies: Rhinorrhea, Sore throat Cardiovascular: Denies: Chest pain, Palpitations Respiratory: Denies: Dyspnea, Cough, Dyspnea on exertion Gastrointestinal: Denies: Abdominal pain, Nausea, Vomiting, Diarrhea, Melena, Hematochezia Genitourinary: Denies: Dysuria, Hematuria, Frequency Musculoskeletal: Denies: Back pain, Extremity Pain Skin: Denies: Rash, Wounds Neurological: Denies: Headache, Weakness, Numbness Psych: Reports: Depression, Anxiety, Suicidal thoughts Physical Exam Vital Signs/Narrative: Vital Signs Temp Pulse Resp BP Pulse Ox 07/28/20 23:02 98 F 89 16 133/86 H 99 Inital Vital Signs reviewed: Yes General: Well nourished, Well developed, No Acute Distress Head: Normocephalic, Atraumatic Eyes: Perrl, EOMI ENT: Moist mucous membranes, No rhinorrhea Neck: Supple, Nontender Cardiovascular: Regular rate, Regular rhythm, No murmurs Respiratory: No distress, CTA bilaterally, Chest nontender Abdomen: Soft, Nontender, Nondistended, Normal bowel sounds Back: Nontender, Normal Inspection Extremities: Nontender, No edema Skin: Normal color, No rash Neurological: Alert, Oriented x3, Cranial nerves II-XII grossly intact, Normal Strength, Normal Sensation Psychological: Normal affect, Normal Mood Diagnostic/Tx/Re-eval Abnormal Lab Results 07/28/20 07/28/20 07/28/20 23:30 23:30 23:30 WBC 10.6 RBC 5.15 Hgb 16.1 H Hct 48.3 H MCV 93.8 MCH 31.3 MCHC 33.3 RDW Std Deviation 47.7 H RDW Coeff of Grady 13.8 Plt Count 281 MPV 10.3 Immature Gran % (Auto) 0.400 Neut % (Auto) 52.6 Lymph % (Auto) 37.9 Dimmit % (Auto) 5.9 Eos % (Auto) 2.6 Baso % (Auto) 0.6 Absolute Neuts (auto) 5.6 Absolute Lymphs (auto) 4.02 Nucleated RBC % 0 VBG Carboxyhemoglobin Sodium 139 Potassium 3.4 L Chloride 104 Carbon Dioxide 29.0 Anion Gap 6 BUN 11 Creatinine 0.77 Estim Creat Clear Calc 74.72 Est GFR (MDRD) Af Amer 102 Est GFR (MDRD) Non-Af 85 BUN/Creatinine Ratio 14.2 Glucose 101 Calcium 9.4 Serum , Qual Urine Opiates Screen Urine Methadone Screen Ur Barbiturates Screen Ur Phencyclidine Scrn Ur Amphetamines Screen U Methamphetamin-MDMA U Benzodiazepines Scrn Urine Cocaine Screen U Cannabinoids Screen Ur Drug Screen Comment Ethyl Alcohol < 3.0 07/28/20 07/28/20 07/28/20 23:30 23:30 23:35 WBC RBC Hgb Hct MCV MCH MCHC RDW Std Deviation RDW Coeff of Grady Plt Count MPV Immature Gran % (Auto) Neut % (Auto) Lymph % (Auto) Dimmit % (Auto) Eos % (Auto) Baso % (Auto) Absolute Neuts (auto) Absolute Lymphs (auto) Nucleated RBC % VBG Carboxyhemoglobin 10.8 H Sodium Potassium Chloride Carbon Dioxide Anion Gap BUN Creatinine Estim Creat Clear Calc Est GFR (MDRD) Af Amer Est GFR (MDRD) Non-Af BUN/Creatinine Ratio Glucose Calcium Serum , Qual NEGATIVE Urine Opiates Screen NEGATIVE Urine Methadone Screen NEGATIVE Ur Barbiturates Screen NEGATIVE Ur Phencyclidine Scrn NEGATIVE Ur Amphetamines Screen NEGATIVE U Methamphetamin-MDMA NEGATIVE U Benzodiazepines Scrn POSITIVE H Urine Cocaine Screen NEGATIVE U Cannabinoids Screen NEGATIVE Ur Drug Screen Comment Ethyl Alcohol - Rhythm Strip Rhythm Strip: Sinus Rhythm Rate: 80 Ectopy: None - EKG Initial EKG Interpretation: Sinus Rhythm, No Acute Injury Pattern Prior: Unchanged - Medical Decision Making The patient presents to the emergency department after suicidal gesture. She had placed an froy on her exhaust and was sitting in a running car. We did obtain carboxyhemoglobin. It was mildly elevated at 10.8. This does not require hyperbaric treatment. She is already been removed from the environment was placed on oxygen. Rest of lab work and EKG are unremarkable. At this point, the patient is medically cleared for psychiatric evaluation. I do feel that she will likely need inpatient psychiatric hospitalization. Impression 1. Suicide attempt ED Disposition - Plan for ED Patient: Referrals: Lexis Benson DO [Primary Care Provider] -
--- NOTE | 2020-07-28 23:37 | ED.RN ---
PORTABLE CO LEVEL OBTAINED AT BEDSIDE READ 12%. MADE AWARE OF RESULTS, VERBALIZED NEED FOR 02. PT PLACED ON OXYGEN
[2020-07-28 23:40] LABS: Absolute Lymphocyte Count 4.02 X10^3/uL (0.83-4.51); Absolute Neutrophil Count 5.6 X10^3/uL (2.0-7.7); Basophil# 0.06 X10^3/uL; Basophil% 0.6 % (0-1); Eosinophil# 0.28 X10^3/uL; Eosinophils% 2.6 % (0-5); Hematocrit 48.3 % (37-47); Hemoglobin 16.1 g/dL (12.0-15.0); Lymphocyte # 4.02 X10^3/ul (4.0); Lymphocyte % 37.9 % (19-41); Mean Corp Hgb Conc 33.3 g/dL (32-36); Mean Corpuscular Hgb 31.3 pg (27.0-32.0); Mean Corpuscular Volume 93.8 fL (81-99); Mean Platelet Vol. 10.3 fl (6.2-12.0); Monocyte# 0.63 X10^3/uL; Monocyte% 5.9 % (0-10); NRBC Flagged by Analyzer 0 % (0-5); Neutrophil # 5.57 X10^3/uL (2.7-7.7); Neutrophil % 52.6 % (47-70); Platelet Count 281 K/mm3 (150-450); RBC Distribution Width CV 13.8 % (11.6-14.6); RBC Distribution Width SD 47.7 fl (35.1-43.9); Red Blood Count 5.15 M/mm3 (4.2-5.4); White Blood Count 10.6 K/mm3 (4.4-11.0)
[2020-07-28 23:53] LABS: Carboxyhemoglobin Frac (CO) 10.8 % (0.0-1.5)
[2020-07-28 23:57] LABS: Anion Gap 6 (5-15); BUN 11 mg/dL (7-18); BUN/Creat Ratio 14.2 RATIO (10-20); Calcium,Total 9.4 mg/dL (8.5-10.1); Chloride 104 mmol/L (98-107); Creatinine, Serum 0.77 mg/dL (0.55-1.02); EST Glomerular Filtration Rate 85 mL/min (>60); Est Glom Filt Rate - Afr Amer 102 mL/min (>60); Estimated Creatinine Clearance 74.72 ml/min; Glucose 101 mg/dL (74-106); Potassium 3.4 mmol/L (3.5-5.1); Sodium Level 139 mmol/L (136-145)
[2020-07-28 23:59] LABS: Internal QC Validated? YES +Cl - CLEAR BKGD; Pregnancy, Serum, hCG Quali. NEGATIVE Negative
[2020-07-29] LABS: Alcohol, Blood (Medical)-Serum < 3.0 mg/dL
[2020-07-29 00:01] LABS: Vista UDS pH Range 5
[2020-07-29 00:02] VITALS: RESP 16
[2020-07-29 00:13] LABS: Amphetamine Urine VISTA NEGATIVE (<1000 ng/mL); Barbiturate Urine VISTA NEGATIVE (< 200 ng/mL); Benzodiazepine Urine VISTA POSITIVE (< 200 ng/mL); Cocaine Urine VISTA NEGATIVE (< 300 ng/mL); Ecstacy Urine VISTA NEGATIVE (< 500 ng/mL); Methadone Urine VISTA NEGATIVE (< 300 ng/mL); PCP Urine VISTA NEGATIVE (< 25 ng/mL); THC Urine VISTA NEGATIVE (< 50 ng/mL)
--- NOTE | 2020-07-29 00:21 | ED.RN ---
PAGED CRISIS AND FAXED THE REPORT
--- NOTE | 2020-07-29 01:32 | ED.RN ---
BEDSIDE CO RECHECKED AND READING SHOWS 6%. PT TO REMAIN ON OXYGEN. WILL RECHECK LEVEL
[2020-07-29 01:38] VITALS: BP 98/63; PULSE 68; RESP 16; O2SAT 100
--- NOTE | 2020-07-29 02:42 | ED.RN ---
PER CRISIS, THIS PT IS REFERRED TO [facility] FOR PLACEMENT
[2020-07-29 03:30] VITALS: RESP 16
[2020-07-29 04:30] VITALS: RESP 16
[2020-07-29 05:33] VITALS: BP 101/57; PULSE 68; RESP 16; O2SAT 94
--- NOTE | 2020-07-29 05:34 | ED.RN ---
attempted to call rn to rn report to [facility], no answer.
--- NOTE | 2020-07-29 07:00 | ED.RN ---
PT SITTING ON EDGE OF BED ASKING IF SHE IS GOING HOME. PT INFORMED BY THIS RN THAT SHE IS PINK SLIPPED AND GOING TO [facility]. PT STATES NO WAY. I'M NOT GOING. GET MY DOCTOR MARIA E RAI HERE NOW. PT INFORMED SHE CAN SPEAK WITH THE ER PHYSICIAN. SPOKE TO PT AND EXPLAINED THE REASON WHY SHE WAS PINK SLIPPED (THAT SHE PLACED AN APPLE IN HER RUNNING CAR'S EXHAUST PIPE). PT STATES THERE IS A DIFFERENCE BETWEEN BEING SUICIDAL AND BEING SUICIDAL AND WANTING TO . I WASN'T GOING TO KILL MYSELF. ASKED THE PATIENT HOW SHE KNEW SHE WASN'T GOING TO KILL HERSELF TO WHICH SHE HAD NO REPLY. PT DEMANDED HER PERSONAL BELONGINGS AND HER . THIS RN EXPLAINED THAT SHE CANNOT HAVE HER PERSONAL BELONGINGS WHILE BEING IN SUICIDAL PRECAUTIONS AND I CALLED HER . PT'S WAS INFORMED THAT HIS WAS UPSET OVER EVERYTHING AND THE PHONE WAS HANDED OVER TO THE PATIENT SO SHE COULD SPEAK TO HIM.
--- NOTE | 2020-07-29 07:19 | ED.RN ---
PT AGAIN ASKING FOR HER PERSONAL BELONGINGS SPECIFICALLY HER PURSE, KEYS AND CELL PHONE. PT INFORMED SHE DID NOT COME WITH ANY OF THOSE ITEMS. PT DEMANDS TO BRING THOS AND HER CIGARETTES AND CALL . THIS RN TOLD HER I WOULD CALL HIM AND RELAY HER REQUESTS. CALLED AND STATES HE WILL BRING CELL PHONE AND CIGARETTES TO FACILITY AND ATTEMPT TO CALL . PT INFORMED OF HIS RESPONSE AND IS UPSET HE CANNOT BEING THEM IMMEDIATELY TO THE ER. TRANSPORTATION IS AT BEDSIDE ATTEMPTING TO LOAD PT ON TO COT. PT CRYING AND CALLING STAFF CONDESCENDING BECAUSE WE DO NOT AGREE WITH HER VIEW OF THE DEFINITION OF SUICIDAL. PT EVENTUALLY GOT ON EMS COT
== END 2020-07-29 07:35 ==
PROVIDERS: Emergency Provider Emergency Medicine; PCP Family Medicine
DX: T58.02XA Toxic effect of carbon monoxide from motor vehicle exhaust, intentional self-harm, initial encounter (principal); Y92.9 Unspecified place or not applicable; F32.9 Major depressive disorder, single episode, unspecified; F41.9 Anxiety disorder, unspecified; I10 Essential (primary) hypertension; Z88.0 Allergy status to penicillin; Z88.5 Allergy status to narcotic agent
CPT/HCPCS: 80048; 80307; 82077; 82375; 84703; 85025; 87426; 93005; 99285

== ENCOUNTER → 2020-10-31 08:03 | Outpatient (CLI) | payer OTHER, SELFPAY ==
[2020-10-19 05:46] VITALS: BMI 33.8
--- NOTE | 2020-10-31 08:05 | BI_ITS ---
MAMMOGRAPHY - BILATERAL SCREENING REASON FOR EXAM: Female, 50 years old. Routine annual screening examination. PERTINENT HISTORY: Aunt with breast cancer. TECHNIQUE: Digital bilateral breast louis (3D mammographic acquisition) in the CC and MLO projections. 2-D mediolateral oblique (MLO) and craniocaudad (CC) views of both breasts were obtained. CAD: Full Field Digital Mammography with Computer Added Detection was performed. COMPARISON: Comparison is made with prior study dated 10/05/2019 and 10/03/2012. FINDINGS: Breast Composition: The breasts are heterogeneously dense, which may obscure small masses. There are no dominant masses or suspicious calcifications. Stable benign appearing bilateral axillary lymph notes. No other significant abnormalities are identified. There has been no significant change since the prior study. BI/SCRN MAMM (CAD)W/LOUIS BILAT IMPRESSION: Stable bilateral screening mammogram. Yearly follow-up mammogram recommended. (A) ASSESSMENT CATEGORY: BIRADS Category 2: Benign. A letter regarding these results will be sent to the patient by the facility within 30 days. Approximately 10% of breast cancers are not detected by mammography. A normal mammogram should not delay biopsy of a clinically suspicious abnormality. [id number] Electronically Signed: Conor Colon MD at 11:27 EDT , Service support ,
== END ==
PROVIDERS: PCP Family Medicine; Referring Provider Family Medicine; Visit Provider Family Medicine
DX: Z12.31 Encounter for screening mammogram for malignant neoplasm of breast (principal)
CPT/HCPCS: 77063; 77067

== ENCOUNTER → 2020-12-05 06:46 | Outpatient (CLI) | payer OTHER, SELFPAY ==
[2020-10-19 05:46] VITALS: BMI 33.8
--- NOTE | 2020-12-05 08:51 | PFTCOMP_ITS ---
COMPLETE PULMONARY FUNCTION TEST INTERPRETATION Brief HPI: Patient is a 50 year old female, currently under the care of Dr. Benson, who presents to [facility] for complete pulmonary function tests secondary to diagnosis of chronic cough. Respiratory therapist reports good effort and reproducible results. Interpretation: Forced expiration spirometry shows no large airways obstructive ventilatory defect with an FEV1 of 114% predicted. There is no significant bronchodilator response by strict ATS criteria. Spirograms are of good quality and plateau normally. The respiratory flow volume loop shows a normal pattern. Lung volumes by body plethysmography show a normal total lung capacity at 5.04 L, 105% predicted. All other lung volumes are within normal limits. Diffusion capacity by carbon monoxide is at the lower limit of normal at 75% predicted. The airway resistance is normal. Compared to previous pulmonary function tests from 07/27/2015, there is been a significant reduction in FVC, FEV1 and DLCO by 27%, 22% and 16% respectively. Impression: Grossly normal pulmonary function test, but does have significant reduction compared to previous testing. Could consider a bronchoprovocation study if asthma is suspected.
== END ==
PROVIDERS: PCP Family Medicine; Referring Provider Family Medicine; Visit Provider Family Medicine
DX: R06.00 Dyspnea, unspecified (principal); R05 Cough; J42 Unspecified chronic bronchitis
CPT/HCPCS: 94060; 94726; 94729

== ENCOUNTER → 2020-12-18 06:48 | Outpatient (CLI) | payer OTHER, SELFPAY ==
[2020-10-19 05:46] VITALS: BMI 33.8
[2020-12-18] MEDS: Methacholine Chloride 18 ml neb kit INHALATION (07:24)
--- NOTE | 2020-12-18 14:27 | BRONCHALL ---
Bronchoprovocation Challenge Bronchoprovocation Challenge Bronchoprovocation Challenge: BRONCHOPROVOCATION STUDY INTERPRETATION Brief HPI: Patient is a 50 year old [female male], currently under the care of Dr. Benson, who presents to [facility] for a bronchoprovocation study secondary to diagnosis of abnormal PFT. Respiratory therapist reports good effort and reproducible results. Interpretation: Initial spirometry showed no large airways obstructive ventilatory defect. The patient was then given increasingly concentrated doses of methacholine in a stepwise/standardized fashion, using a modified ATS protocol.[The patient had a significant reduction in FEV1 by] 27% and a calculated PD20 of 0.397. Impression: This is a positive bronchoprovocation study in the range nonspecific for asthma.
== END ==
PROVIDERS: PCP Family Medicine; Referring Provider Family Medicine; Visit Provider Family Medicine
DX: R05 Cough (principal); R06.00 Dyspnea, unspecified
CPT/HCPCS: 94070; 95070

== ENCOUNTER → 2021-04-17 15:11 | Outpatient (CLI) | payer OTHER, SELFPAY | PROVIDERS: PCP Family Medicine; Referring Provider Nurse Practitioner Women's Health; Visit Provider Nurse Practitioner Women's Health | DX: N89.8 Other specified noninflammatory disorders of vagina (principal) | CPT/HCPCS: 87070; 87205 ==

== ENCOUNTER → 2021-10-01 | Outpatient (CLI) | payer OTHER, SELFPAY ==
--- NOTE | 2021-10-01 16:58 | US_ITS ---
STUDY: THYROID ULTRASOUND REASON FOR EXAM: Female, 51 years old. TSH ABNORMAL,EVALUATE NODULE TECHNIQUE: Ultrasound evaluation of the thyroid was performed with real-time and static esqueda-scale imaging. COMPARISON: None. FINDINGS: RIGHT LOBE: The right lobe of the thyroid gland measures 5.3 x 2.3 cm. There is a heterogeneous echotexture. There are nodules. Largest measures 6 x 7 x 5 mm in the inferior aspect of the gland. The lesion is solid with regular margins and chico nodular doppler flow. LEFT LOBE: The left lobe of the thyroid gland measures 5.2 x 2.1 cm. There is a heterogeneous echotexture. There are nodules. Largest nodule in the inferior pole measures 4.4 x 3 mm.The lesion is solid with regular margins and chico nodular doppler flow. ISTHMUS: The isthmus measures 6 mm. US/Thyroid IMPRESSION: There are RIGHT nodules. This nodule is solid or almost completely solid, hypoechoic, [id number], smoothly marginated and contains no echogenic foci. TI-RADS points: 4. TI-RADS category: TR4. This nodule is moderately suspicious but no FNA or follow-up is necessary given the small size of this nodule. There are left nodules. This nodule is solid or almost completely solid, hypoechoic, [id number], smoothly marginated and contains no echogenic foci. TI-RADS points: 4. TI-RADS category: TR4. This nodule is moderately suspicious but no FNA or follow-up is necessary given the small size of this nodule. Electronically Signed: Blair Iverson MD at 19:05 EDT ,
== END | disposition home or self-care (01) ==
PROVIDERS: PCP Family Medicine; Referring Provider Family Medicine; Visit Provider Family Medicine
DX: E04.1 Nontoxic single thyroid nodule (principal); R79.89 Other specified abnormal findings of blood chemistry
CPT/HCPCS: 76536

== ENCOUNTER 2021-10-30 09:30 | Outpatient (RCR) | payer SELFPAY | END 2021-10-30 23:59 | LOC: DC 09:30 | PROVIDERS: PCP Family Medicine; Referring Provider Family Medicine; Visit Provider Family Medicine | DX: E11.9 Type 2 diabetes mellitus without complications (principal) | CPT/HCPCS: G0108 ==

== ENCOUNTER → 2021-11-01 | Outpatient (CLI) | payer OTHER, SELFPAY ==
--- NOTE | 2021-11-01 07:10 | BI_ITS ---
MAMMOGRAPHY - BILATERAL SCREENING REASON FOR EXAM: Female, 51 years old. Routine annual screening examination. PERTINENT HISTORY: Aunt with breast cancer. TECHNIQUE: Digital bilateral breast louis (3D mammographic acquisition) in the CC and MLO projections. 2-D mediolateral oblique (MLO) and craniocaudad (CC) views of both breasts were obtained. CAD: Full Field Digital Mammography with Computer Added Detection was performed. COMPARISON: Comparison is made with prior study dated 10/31/2020 and 10/05/2019. FINDINGS: Breast Composition: The breasts are heterogeneously dense, which may obscure small masses. There are no dominant masses or suspicious calcifications. Stable bilateral axillary lymph nodes. No other significant abnormalities are identified. There has been no significant change since the prior study. BI/SCRN MAMM (CAD)W/LOUIS BILAT IMPRESSION: Stable bilateral screening mammogram. Yearly follow-up mammogram recommended. (A) ASSESSMENT CATEGORY: BIRADS Category 2: Benign. A letter regarding these results will be sent to the patient by the facility within 30 days. Approximately 10% of breast cancers are not detected by mammography. A normal mammogram should not delay biopsy of a clinically suspicious abnormality. [id number] Electronically Signed: Conor Colon MD at 8:26 EDT ,
== END | disposition home or self-care (01) ==
LOC: OPBI 07:09
PROVIDERS: PCP Family Medicine; Visit Provider Family Medicine
DX: Z12.31 Encounter for screening mammogram for malignant neoplasm of breast (principal)
CPT/HCPCS: 77063; 77067

== ENCOUNTER 2021-11-12 08:54 | Outpatient (RCR) | payer OTHER, SELFPAY | END 2021-11-29 23:59 | LOC: DC 08:54 | PROVIDERS: PCP Family Medicine; Referring Provider Family Medicine; Visit Provider Family Medicine | DX: E11.9 Type 2 diabetes mellitus without complications (principal) | CPT/HCPCS: 97802 ==

== ENCOUNTER → 2022-03-07 | Outpatient (CLI) | payer OTHER, SELFPAY ==
[2022-03-07 08:39] LABS: Free T3 2.9 pg/mL (2.18-3.98); T4 Free Direct 1.14 ng/dL (0.76-1.46); Thyroid Stim Hormone (TSH) 3.33 uIU/mL (0.358-3.74)
[2022-03-07 14:58] LABS: AST(SGOT) 22 U/L (15-37); Alanine Aminotransfer ALT/SGPT 44 U/L (13-56); Albumin, Serum 3.8 g/dL (3.2-5.0); Alkaline Phosphatase 91 U/L (45-117); Anion Gap 7 (5-15); BUN 12 mg/dL (7-18); BUN/Creat Ratio 15.9 RATIO (10-20); Calcium,Total 9.3 mg/dL (8.5-10.1); Chloride 104 mmol/L (98-107); Creatinine, Serum 0.76 mg/dL (0.55-1.02); EST Glomerular Filtration Rate 87 mL/min (>60); Est Glom Filt Rate - Afr Amer 105 mL/min (>60); Glucose 119 mg/dL (74-106); Magnesium 2.4 mg/dL (1.6-2.6); Potassium 3.9 mmol/L (3.5-5.1); Protein, Total 7.8 g/dL (6.4-8.2); Sodium Level 139 mmol/L (136-145)
== END | disposition home or self-care (01) ==
LOC: LAB 06:49
PROVIDERS: PCP Family Medicine; Referring Provider Family Medicine; Visit Provider Family Medicine
DX: E03.9 Hypothyroidism, unspecified (principal); E11.9 Type 2 diabetes mellitus without complications; E05.90 Thyrotoxicosis, unspecified without thyrotoxic crisis or storm; E55.9 Vitamin D deficiency, unspecified
CPT/HCPCS: 36415; 80053; 83735; 84439; 84443; 84481

== ENCOUNTER → 2022-05-20 | Outpatient (CLI) | payer OTHER, SELFPAY ==
[2022-05-20 11:52] LABS: Erythrocyte Sedimentation Rate 17 mm/hr (0-30)
[2022-05-20 12:01] LABS: Vitamin B12 446 pg/mL (211-911)
[2022-05-20 12:04] LABS: Hemoglobin A1c 5.6 % (3.8-5.6)
[2022-05-20 12:10] LABS: AST(SGOT) 38 U/L (15-37); Alanine Aminotransfer ALT/SGPT 82 U/L (13-56); Albumin, Serum 3.7 g/dL (3.2-5.0); Alkaline Phosphatase 83 U/L (45-117); Anion Gap 4 (5-15); BUN 18 mg/dL (7-18); BUN/Creat Ratio 24.1 RATIO (10-20); CRP 4.72 mg/L (0.0-3.0); Calcium,Total 9.2 mg/dL (8.5-10.1); Chloride 105 mmol/L (98-107); Creatinine, Serum 0.75 mg/dL (0.55-1.02); EST Glomerular Filtration Rate 87 mL/min (>60); Est Glom Filt Rate - Afr Amer 106 mL/min (>60); Free T3 3.3 pg/mL (2.18-3.98); Globulin 3.8 g/dL (2.2-4.2); Glucose 118 mg/dL (74-106); Magnesium 2.3 mg/dL (1.6-2.6); Protein, Total 7.5 g/dL (6.4-8.2); Sodium Level 136 mmol/L (136-145); Thyroid Stim Hormone (TSH) 0.92 uIU/mL (0.358-3.74)
[2022-05-20 12:12] LABS: Absolute Lymphocyte Count 3.42 X10^3/uL (0.83-4.51); Absolute Neutrophil Count 7.6 X10^3/uL (2.0-7.7); Basophil# 0.08 X10^3/uL; Basophil% 0.7 % (0-1); Eosinophil# 0.22 X10^3/uL; Eosinophils% 1.8 % (0-5); Hematocrit 46.1 % (37-47); Hemoglobin 15.2 g/dL (12.0-15.0); Lymphocyte # 3.42 X10^3/ul (0.83-4.51); Lymphocyte % 28.4 % (19-41); Mean Corpuscular Hgb 30.5 pg (27.0-32.0); Mean Corpuscular Volume 92.4 fL (81-99); Monocyte# 0.67 X10^3/uL; Monocyte% 5.6 % (0-10); NRBC Flagged by Analyzer 0 % (0-5); Neutrophil # 7.61 X10^3/uL (2.7-7.7); Platelet Count 309 K/mm3 (150-450); RBC Distribution Width CV 13.7 % (11.6-14.6); RBC Distribution Width SD 46.5 fl (35.1-43.9); Red Blood Count 4.99 M/mm3 (4.2-5.4); White Blood Count 12.1 K/mm3 (4.4-11.0)
== END | disposition home or self-care (01) ==
LOC: BFHLAB 08:14
PROVIDERS: PCP Family Medicine; Visit Provider Family Medicine
DX: E05.90 Thyrotoxicosis, unspecified without thyrotoxic crisis or storm (principal); E11.9 Type 2 diabetes mellitus without complications; Z51.81 Encounter for therapeutic drug level monitoring; E55.9 Vitamin D deficiency, unspecified; R25.2 Cramp and spasm
CPT/HCPCS: 36415; 80053; 82607; 83036; 83735; 84439; 84443; 84481; 85025; 85652; 86140

== ENCOUNTER → 2022-07-02 | Outpatient (CLI) | payer OTHER, SELFPAY ==
[2022-07-02 12:36] LABS: Vitamin B12 621 pg/mL (211-911); Vitamin D,25 Hydroxy 25.3 ng/mL
[2022-07-02 12:43] LABS: Ferritin 17 ng/mL (8-252); Iron 83 ug/dL (50-170)
== END | disposition home or self-care (01) ==
LOC: BFHLAB 10:11
PROVIDERS: PCP Family Medicine; Visit Provider Family Medicine
DX: D64.9 Anemia, unspecified (principal); E55.9 Vitamin D deficiency, unspecified; E53.8 Deficiency of other specified B group vitamins; E61.1 Iron deficiency
CPT/HCPCS: 36415; 82306; 82607; 82728; 83540

== ENCOUNTER → 2022-09-24 | Outpatient (CLI) | payer OTHER, SELFPAY ==
[2022-09-24 16:23] LABS: Hemoglobin A1c 5.7 % (3.8-5.6)
[2022-09-24 16:28] LABS: AST(SGOT) 69 U/L (15-37); Alanine Aminotransfer ALT/SGPT 123 U/L (13-56); Albumin, Serum 4.1 g/dL (3.2-5.0); Alkaline Phosphatase 95 U/L (45-117); Anion Gap 6 (5-15); BUN 10 mg/dL (7-18); BUN/Creat Ratio 14.3 RATIO (10-20); Calcium,Total 9.4 mg/dL (8.5-10.1); Chloride 105 mmol/L (98-107); EST Glomerular Filtration Rate 94 mL/min (>60); Est Glom Filt Rate - Afr Amer 114 mL/min (>60); Globulin 4.2 g/dL (2.2-4.2); Glucose 108 mg/dL (74-106); Potassium 3.6 mmol/L (3.5-5.1); Protein, Total 8.3 g/dL (6.4-8.2); Sodium Level 135 mmol/L (136-145); T4 Free Direct 1.52 ng/dL (0.76-1.46); Thyroid Stim Hormone (TSH) 0.55 uIU/mL (0.358-3.74); Vitamin B12 811 pg/mL (211-911); Vitamin D,25 Hydroxy 30.8 ng/mL
== END | disposition home or self-care (01) ==
LOC: BFHLAB 13:04
PROVIDERS: PCP Family Medicine; Referring Provider Family Medicine; Visit Provider Family Medicine
DX: Z51.81 Encounter for therapeutic drug level monitoring (principal); E03.9 Hypothyroidism, unspecified; E53.8 Deficiency of other specified B group vitamins; R73.03 Prediabetes; M25.50 Pain in unspecified joint; E55.9 Vitamin D deficiency, unspecified
CPT/HCPCS: 36415; 80053; 82306; 82607; 83036; 84439; 84443; 84481; 86140

== ENCOUNTER → 2022-11-04 | Outpatient (CLI) | payer OTHER, SELFPAY ==
--- NOTE | 2022-11-04 08:47 | BI_ITS ---
MAMMOGRAPHY - BILATERAL SCREENING REASON FOR EXAM: Female, 52 years old. Routine annual screening examination. PERTINENT HISTORY: Aunt with breast cancer. TECHNIQUE: Digital bilateral breast louis (3D mammographic acquisition) in the CC and MLO projections. 2-D mediolateral oblique (MLO) and craniocaudad (CC) views of both breasts were obtained. CAD: Full Field Digital Mammography with Computer Added Detection was performed. COMPARISON: Comparison is made with prior study dated November 01, 2021 and October 31, 2020. FINDINGS: Breast Composition: The breasts are heterogeneously dense, which may obscure small masses. There are no dominant masses or suspicious calcifications. Stable benign-appearing bilateral axillary lymph nodes. No other significant abnormalities are identified. There has been no significant change since the prior study. BI/SCRN MAMM (CAD)W/LOUIS BILAT IMPRESSION: Stable bilateral screening mammogram. Yearly follow-up mammogram recommended. (A) ASSESSMENT CATEGORY: BIRADS Category 2: Benign. A letter regarding these results will be sent to the patient by the facility within 30 days. Approximately 10% of breast cancers are not detected by mammography. A normal mammogram should not delay biopsy of a clinically suspicious abnormality. [id number] Electronically Signed: Conor Colon MD at 10:09 EDT ,
== END | disposition home or self-care (01) ==
LOC: OPBI 08:45
PROVIDERS: PCP Family Medicine; Referring Provider Family Medicine; Visit Provider Family Medicine
DX: Z12.31 Encounter for screening mammogram for malignant neoplasm of breast (principal); Z80.3 Family history of malignant neoplasm of breast
CPT/HCPCS: 77063; 77067

== ENCOUNTER → 2022-12-16 | Outpatient (CLI) | payer OTHER, SELFPAY ==
--- NOTE | 2022-12-16 15:33 | RAD_ITS ---
EXAM: XR CERVICAL SPINE, 4 OR 5 VIEWS CLINICAL INDICATION: NECK/UPPER BACK PAIN TECHNIQUE: Frontal, lateral and bilateral oblique views of the cervical spine. COMPARISON: No relevant prior studies available. FINDINGS: VERTEBRAE: Unremarkable. Preserved vertebral body height. No acute fracture. No spondylolisthesis. Preservation of the normal cervical lordosis. No significant facet arthropathy. DISC SPACES: Unremarkable. Disc spaces are maintained. SOFT TISSUES: Unremarkable. No prevertebral soft tissue widening. LUNG APICES: Clear. RAD/Cerv Spine 4 or 5 Views IMPRESSION: No evidence of acute fracture or spondylolisthesis. Electronically Signed: Gianfranco Martinez MD at 23:54 EDT ,
--- NOTE | 2022-12-16 15:33 | RAD_ITS ---
EXAM: XR RIGHT SHOULDER COMPLETE, 2 OR MORE VIEWS CLINICAL INDICATION: PAIN TECHNIQUE: Two or more views of the right shoulder. COMPARISON: No relevant prior studies available. FINDINGS: BONES/JOINTS: Unremarkable. No acute fracture. No subluxation. Normal alignment. Preservation of the joint space. No sclerotic or destructive changes observed. SOFT TISSUES: Unremarkable. No soft tissue swelling or gas. No radiopaque foreign body. RAD/Shoulder min 2 Views IMPRESSION: Negative right shoulder x-rays. Electronically Signed: Gianfranco Martinez MD at 23:59 EDT ,
== END | disposition home or self-care (01) ==
PROVIDERS: PCP Family Medicine; Referring Provider Family Medicine; Visit Provider Family Medicine
DX: M54.2 Cervicalgia (principal); M25.511 Pain in right shoulder
CPT/HCPCS: 72050; 73030

== ENCOUNTER 2023-01-16 08:00 | Outpatient (RCR) | payer OTHER, SELFPAY ==
--- NOTE | 2022-12-24 10:03 | HP.PTEVAL_ITS ---
Patient's Visit Information Visit Information Visit Information: NARCISO AVILES is a 52 year old F referred to Physical Therapy by Dr. Lexis Benson DO with a diagnosis of Cervicalgia. Date of Evaluation: 12/24/22 Physical Therapist: Enedina Brunson DPT Visit Plan Frequency: 2x /Week Duration: 4 Weeks Plan: Focus on scapular strength/stabilization for posture- modality of US, TENS and manual traction prior to trial of mechanical traction PRN- reduce radicular s/s HEP Given IE: Posture, Scapular retraction, bilateral ER, corner stretch, upper trap stretch, levator stretch, supine chin tucks. Subjective Subjective: She has had neck and right arm pain for about 6 weeks. She has had this before and it was both sides all the way and it comes and goes- if she does anything extra or strenuous it flares up. 6 weeks ago she was moving stuff around and it flared up. Pain is down the neck and under the right shoulder blade- down the upper trap and down the whole arm and includes the whole hand. Worst in the last 48 hours: 210 in the last week: 11/09 Agg: driving, lifting (cat liter). Eases: lacrosse ball, ice Best: 09/09. Describes the pain as sharp/shooting and dull and achy. This pain is constant and she has very little relief. Sharp more active and dull achy when sitting around. N/T in fingers that comes and goes-25% of the time. X-ray of the Cervical Spine (Results: No evidence of acute fracture or spondylolisthesis.) X-ray of the Right Shoulder (Results: Negative right shoulder x-rays.). No MRI. She does have injections- the last one was 12/16/[address] Zendejas- trigger points. No medication for the pain just does Advil/Tylenol combo. Sleep: disturbed- all over the place- hard to get comfortable and will wake her up. 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 No Trauma or MVA's that she can think. No blurred vision or dizziness. Does have REED a lot- she has been going to [facility] for years. She does not feel like its helping. REED are back of the eyes or tension along the occiput- up to 3x a week- no medication. PMHx: HTN, IBS, OCD, GERD, Anxiety, Hashimotos, Sleep Apnea, Left and Right TKR (partials) Meds: Anucort- HC, dilTiazern, escitalopram, methimazole, omeprazole, sucralfate. Objective Objective: Posture: FH, RS- can correct with verbal and tactile cues but does not main Gait: fair posture but still FH, RS- good arm swing and trunk rotation Palpation: tender along medial scapula on right, parapsinals from occiput to C7, upper trap to AC joint and into the biciptal groove ROM: WFL in all planes of the cervical and UE Strength: Cervical isometric: 4+/5, Scap: fair minus, Shoulder: 4+/5, Elbow: 4+/5, Ross Furnace Operator:60/40 right hand dominate Flex: UT: moderate Levator: moderate Sensation: WNL to gross touch bilateral UE Special Test: Distraction: decrease s/s Compression: no change in s/s Special Tests R Shoulder Empty Can - SS: Negative R Shoulder Neer - Impingement: Negative R Shoulder Goldstein Eduardo - Impingement: Negative Balance/Special Test Scores Oswestry Neck Score: 20 Goals Goal 1:: Patient will be I with HEP and progression Goal Time Frame: 4-6 Weeks Goal 2:: Patient will maintain proper posture t/o tx session to demo increased scap s/s Goal Time Frame: 4-6 Weeks Goal 3:: Patient will report no radicular s/s for 1 week Goal Time Frame: 4-6 Weeks Goal 4:: Patient will report 80% improvement Goal Time Frame: 4-6 Weeks Goal 5:: Patient will report no REED for 1 week Goal Time Frame: 4-6 Weeks Rehabilitation Potential Physical Therapy Diagnosis: Patient presents with hypomobility- she has decreased scapular s/s and muscular endurance leading to poor posture leading to radicular symptoms, REED and increased pain with ADLs. Rehabilitation Potential: Good Anticipated Interventions Patient/Client Instruction: Educate patient on: Benefits of Fitness Program Therapeutic Exercise to Include: Strength training, Endurance training, Coordination, Body mechanics, Postural training, Flexibilty training, Neuromotor development, Passive ROM, Active ROM, Dynamic Lumbar Stabilization and Scapular Strength/Stabilization For the Purpose of:: To improve muscle performance and motor function Manual Therapy Techniques to Include: Mobilization and Soft tissue mobilization TENS: Yes Cryotherapy (ice pack, ice massage): Yes Ultrasound (thermal/non thermal): Yes Intermittent cervical traction: Yes (Trial Manual Traction First) Text: Thank you for the opportunity to evaluate your patient. For Medicare and Medicare HMO plans, please review the plan of care and approve it. It will need to be FAXED BACK to us at [phone] for Medicare purposes. For Medicare only, by signing this I certify the plan of care. Please let me know if there are questions or concerns regarding this plan of care. Physician Signature: __Date:
--- NOTE | 2023-02-27 17:18 | HP.PT.NRP ---
Patient Information Patient Information: NARCISO AVILES was seen in my office for initial evaluation on 12/24/22. The following Plan of Care was established for this patient: POC Established Initial Frequency: 2x /Week Initial Duration: 4 Weeks Anticipated Interventions Patient/Client Instruction: Educate patient on: Benefits of Fitness Program Therapeutic Exercise to Include: Strength training, Endurance training, Coordination, Body mechanics, Postural training, Flexibilty training, Neuromotor development, Passive ROM, Active ROM, Dynamic Lumbar Stabilization and Scapular Strength/Stabilization For the Purpose of:: To improve muscle performance and motor function Manual Therapy Techniques to Include: Mobilization and Soft tissue mobilization TENS: Yes Cryotherapy (ice pack, ice massage): Yes Ultrasound (thermal/non thermal): Yes Intermittent cervical traction: Yes (Trial Manual Traction First) Last Seen Last Seen: This patient was last seen in our office . Pertinent comments regarding their Physical therapy will appear below: Patient has not attended PT for over 30 days- appropriate for d/c and return to MD for further evaluation as needed At this point I will be discontinuing this patient from physical therapy. I would be happy to see this patient again in the future if found appropriate by the physician. Thank you! Enedina Brunson, THANG Balance/Gait/Functional tests Balance/Special Test Scores Oswestry Neck Score: 20
== END 2023-01-16 19:00 | disposition home or self-care (01) ==
LOC: PT 08:00
PROVIDERS: PCP Family Medicine; Referring Provider Family Medicine; Visit Provider Family Medicine
DX: M54.2 Cervicalgia (principal); M54.9 Dorsalgia, unspecified; R20.2 Paresthesia of skin
CPT/HCPCS: 97110; 97162

== ENCOUNTER → 2023-01-29 | Outpatient (CLI) | payer OTHER, SELFPAY ==
[2023-01-29 13:17] LABS: ALB/GLOB Ratio 1.1 RATIO (0.9-2.4); AST(SGOT) 32 U/L (15-37); Alanine Aminotransfer ALT/SGPT 61 U/L (13-56); Albumin, Serum 3.9 g/dL (3.2-5.0); Alkaline Phosphatase 90 U/L (45-117); Anion Gap 8 (5-15); BUN 13 mg/dL (7-18); BUN/Creat Ratio 15.5 RATIO (10-20); Chloride 104 mmol/L (98-107); Creatinine, Serum 0.84 mg/dL (0.55-1.02); EST Glomerular Filtration Rate 76 mL/min (>60); Est Glom Filt Rate - Afr Amer 92 mL/min (>60); Free T3 2.6 pg/mL (2.18-3.98); Globulin 3.5 g/dL (2.2-4.2); Glucose 128 mg/dL (74-106); Potassium 3.8 mmol/L (3.5-5.1); Protein, Total 7.4 g/dL (6.4-8.2); Sodium Level 137 mmol/L (136-145); T4 Free Direct 1.11 ng/dL (0.76-1.46); Thyroid Stim Hormone (TSH) 1.17 uIU/mL (0.358-3.74)
== END | disposition home or self-care (01) ==
LOC: BFHLAB 09:25
PROVIDERS: PCP Family Medicine; Referring Provider Family Medicine; Visit Provider Family Medicine
DX: E03.9 Hypothyroidism, unspecified (principal); R74.8 Abnormal levels of other serum enzymes; Z51.81 Encounter for therapeutic drug level monitoring
CPT/HCPCS: 36415; 80053; 84439; 84443; 84481

== ENCOUNTER → 2023-03-24 | Outpatient (CLI) | payer OTHER, SELFPAY ==
[2023-03-24 12:18] LABS: Absolute Lymphocyte Count 3.28 X10^3/uL (0.83-4.51); Absolute Neutrophil Count 6.1 X10^3/uL (2.0-7.7); Basophil# 0.07 X10^3/uL; Basophil% 0.7 % (0-1); Hemoglobin 15.1 g/dL (12.0-15.0); Lymphocyte # 3.28 X10^3/ul (0.83-4.51); Lymphocyte % 32.2 % (19-41); Mean Corp Hgb Conc 32.1 g/dL (32-36); Mean Corpuscular Hgb 30.1 pg (27.0-32.0); Mean Corpuscular Volume 93.6 fL (81-99); Mean Platelet Vol. 11.1 fl (6.2-12.0); Monocyte# 0.55 X10^3/uL; Monocyte% 5.4 % (0-10); NRBC Flagged by Analyzer 0 % (0-5); Neutrophil # 6.05 X10^3/uL (2.7-7.7); Neutrophil % 59.2 % (47-70); Platelet Count 324 K/mm3 (150-450); RBC Distribution Width CV 14.7 % (11.6-14.6); Red Blood Count 5.02 M/mm3 (4.2-5.4); White Blood Count 10.2 K/mm3 (4.4-11.0)
[2023-03-24 12:35] LABS: Hemoglobin A1c 5.1 % (3.8-5.6)
[2023-03-24 12:59] LABS: ALB/GLOB Ratio 0.9 RATIO (0.9-2.4); AST(SGOT) 17 U/L (15-37); Alanine Aminotransfer ALT/SGPT 33 U/L (13-56); Albumin, Serum 3.5 g/dL (3.2-5.0); Alkaline Phosphatase 109 U/L (45-117); Anion Gap 7 (5-15); BUN 11 mg/dL (7-18); BUN/Creat Ratio 14.8 RATIO (10-20); Calcium,Total 8.6 mg/dL (8.5-10.1); Chloride 104 mmol/L (98-107); Creatinine, Serum 0.74 mg/dL (0.55-1.02); EST Glomerular Filtration Rate 88 mL/min (>60); Est Glom Filt Rate - Afr Amer 106 mL/min (>60); Globulin 3.8 g/dL (2.2-4.2); Glucose 106 mg/dL (74-106); Potassium 3.5 mmol/L (3.5-5.1); Protein, Total 7.3 g/dL (6.4-8.2); Sodium Level 139 mmol/L (136-145); Thyroid Stim Hormone (TSH) 2.07 uIU/mL (0.358-3.74)
== END | disposition home or self-care (01) ==
LOC: BFHLAB 08:47
PROVIDERS: PCP Family Medicine; Referring Provider Family Medicine; Visit Provider Family Medicine
DX: E03.9 Hypothyroidism, unspecified (principal); R73.01 Impaired fasting glucose; R74.8 Abnormal levels of other serum enzymes; Z51.81 Encounter for therapeutic drug level monitoring
CPT/HCPCS: 36415; 80053; 83036; 84439; 84443; 84481; 85025

== ENCOUNTER → 2023-06-18 | Outpatient (CLI) | payer OTHER, SELFPAY ==
--- NOTE | 2023-06-18 14:36 | CT_ITS ---
EXAM: CT MAXILLOFACIAL WITHOUT INTRAVENOUS CONTRAST CLINICAL INDICATION: CHRONIC SINUSITIS TECHNIQUE: Helically acquired images were obtained of the face without intravenous contrast. This CT exam was performed using one or more of the following dose reduction techniques: automated exposure control, adjustment of the mA and/or kV according to patient size, and/or use of iterative reconstruction technique. COMPARISON: No relevant prior studies available. FINDINGS: BONES/JOINTS: No acute facial or orbital fracture. SOFT TISSUES: Normal. No focal subcutaneous swelling. No discrete fluid collections. ORBITS: Normal. Both globes are unremarkable. Extraocular muscles are normal. Retrobulbar fat appears unremarkable. SINUSES: Paranasal sinuses are clear. Mild deviation of the nasal septum to the left of midline. No pedro bullosa. MASTOID AIR CELLS: Unremarkable as visualized. Clear. CT/Sinus/Facial Bone IMPRESSION: No evidence of acute or chronic sinusitis. Mild deviation of the nasal septum. Electronically Signed: Duane Romero MD at 11:05 EST ,
== END | disposition home or self-care (01) ==
LOC: CT 14:35
PROVIDERS: PCP Family Medicine; Referring Provider Otolaryngology; Visit Provider Otolaryngology
DX: J32.8 Other chronic sinusitis (principal)
CPT/HCPCS: 70486

== ENCOUNTER → 2023-08-25 | Outpatient (CLI) | payer OTHER, SELFPAY ==
[2023-08-25 15:56] LABS: Erythrocyte Sedimentation Rate 15 mm/hr (0-30)
[2023-08-25 16:01] LABS: Absolute Neutrophil Count 5.6 X10^3/uL (2.0-7.7); Basophil# 0.08 X10^3/uL; Basophil% 0.8 % (0-1); Eosinophil# 0.26 X10^3/uL; Eosinophils% 2.5 % (0-5); Hemoglobin 14.8 g/dL (12.0-15.0); Lymphocyte % 37.1 % (19-41); Mean Corp Hgb Conc 32.2 g/dL (32-36); Mean Corpuscular Hgb 29.1 pg (27.0-32.0); Mean Corpuscular Volume 90.4 fL (81-99); Monocyte# 0.61 X10^3/uL; Monocyte% 5.8 % (0-10); NRBC Flagged by Analyzer 0 % (0-5); Neutrophil # 5.63 X10^3/uL (2.7-7.7); Neutrophil % 53.6 % (47-70); Platelet Count 309 K/mm3 (150-450); RBC Distribution Width CV 14.2 % (11.6-14.6); RBC Distribution Width SD 47.3 fl (35.1-43.9); Red Blood Count 5.09 M/mm3 (4.2-5.4); White Blood Count 10.5 K/mm3 (4.4-11.0)
[2023-08-25 16:10] LABS: Hemoglobin A1c 5.4 % (3.8-5.6)
[2023-08-25 16:40] LABS: ALB/GLOB Ratio 1.1 RATIO (0.9-2.4); AST(SGOT) 27 U/L (15-37); Alanine Aminotransfer ALT/SGPT 41 U/L (13-56); Albumin, Serum 4.1 g/dL (3.2-5.0); Alkaline Phosphatase 97 U/L (45-117); Anion Gap 7 (5-15); BUN 9 mg/dL (7-18); CRP < 2.90 mg/L (0.0-3.0); Calcium,Total 9.3 mg/dL (8.5-10.1); Chloride 106 mmol/L (98-107); Creatinine, Serum 0.75 mg/dL (0.55-1.02); EST Glomerular Filtration Rate 87 mL/min (>60); Est Glom Filt Rate - Afr Amer 105 mL/min (>60); Free T3 2.6 pg/mL (2.18-3.98); Globulin 3.6 g/dL (2.2-4.2); Glucose 101 mg/dL (74-106); Potassium 3.9 mmol/L (3.5-5.1); Protein, Total 7.7 g/dL (6.4-8.2); Sodium Level 137 mmol/L (136-145); T4 Free Direct 1.02 ng/dL (0.76-1.46); Thyroid Stim Hormone (TSH) 2.26 uIU/mL (0.358-3.74)
== END | disposition home or self-care (01) ==
PROVIDERS: PCP Family Medicine; Referring Provider Family Medicine; Visit Provider Family Medicine
DX: E03.9 Hypothyroidism, unspecified (principal); R73.01 Impaired fasting glucose; Z51.81 Encounter for therapeutic drug level monitoring; R74.8 Abnormal levels of other serum enzymes
CPT/HCPCS: 36415; 80053; 83036; 84439; 84443; 84481; 85025; 85652; 86140

== ENCOUNTER → 2023-08-28 | Outpatient (CLI) | payer OTHER, SELFPAY ==
--- NOTE | 2023-08-28 15:49 | US_ITS ---
STUDY: THYROID ULTRASOUND REASON FOR EXAM: Female, 52 years old. THYROID NODULES TECHNIQUE: Ultrasound evaluation of the thyroid was performed with real-time and static esqueda-scale imaging. COMPARISON: Comparison is made with prior study of October 01, 2021. FINDINGS: RIGHT LOBE: The right lobe of the thyroid gland measures 4.8 cm x 1.5 cm x 2.1 cm. There is a heterogeneous echotexture. There are multiple subcentimeter solid nodules. The largest nodule measures 5 mm x 4 mm x 3 mm. This is in the mid pole. LEFT LOBE: The left lobe of the thyroid gland measures 4.2 cm x 1.7 cm x 1.5 cm. There is a heterogeneous echotexture. Multiple subcentimeters solid nodules are seen. The largest is in the mid pole and measures 3 mm x 3 mm x 3 mm. ISTHMUS: The isthmus measures 5.2 mm. The regional lymph nodes are normal. US/Thyroid IMPRESSION: Heterogeneous appearance of both lobes of the thyroid gland. Stable multiple subcentimeter solid nodules. Electronically Signed: Conor Colon MD at 10:43 EDT ,
== END | disposition home or self-care (01) ==
LOC: US 15:48
PROVIDERS: PCP Family Medicine; Referring Provider Family Medicine; Visit Provider Family Medicine
DX: E04.2 Nontoxic multinodular goiter (principal)
CPT/HCPCS: 76536

== ENCOUNTER → 2023-11-07 | Outpatient (CLI) | payer OTHER, SELFPAY ==
--- NOTE | 2023-11-07 10:20 | BI_ITS ---
MAMMOGRAPHY - BILATERAL SCREENING REASON FOR EXAM: Female, 53 years old. Routine annual screening examination. PERTINENT HISTORY: Aunt with breast cancer. TECHNIQUE: Digital bilateral breast louis (3D mammographic acquisition) in the CC and MLO projections. 2-D mediolateral oblique (MLO) and craniocaudad (CC) views of both breasts were obtained. CAD: Full Field Digital Mammography with Computer Added Detection was performed. COMPARISON: Comparison is made with prior study dated November 04, 2022 and November 01, 2021. FINDINGS: Breast Composition: The breasts are heterogeneously dense, which may obscure small masses. There are no dominant masses or suspicious calcifications. Stable bilateral axillary lymph nodes. No other significant abnormalities are identified. There has been no significant change since the prior study. BI/SCRN MAMM (CAD)W/LOUIS BILAT IMPRESSION: Stable bilateral screening mammogram. Yearly follow-up mammogram recommended. (A) ASSESSMENT CATEGORY: BIRADS Category 2: Benign. A letter regarding these results will be sent to the patient by the facility within 30 days. Approximately 10% of breast cancers are not detected by mammography. A normal mammogram should not delay biopsy of a clinically suspicious abnormality. [id number] Electronically Signed: Conor Colon MD at 11:18 EDT ,
== END | disposition home or self-care (01) ==
LOC: OPBI 10:19
PROVIDERS: PCP Family Medicine; Referring Provider Family Medicine; Visit Provider Family Medicine
DX: Z12.31 Encounter for screening mammogram for malignant neoplasm of breast (principal); Z80.3 Family history of malignant neoplasm of breast
CPT/HCPCS: 77063; 77067

== ENCOUNTER → 2023-12-03 | Outpatient (CLI) | payer OTHER, SELFPAY ==
--- NOTE | 2023-12-03 12:53 | RAD_ITS ---
STUDY: X-RAY - RIGHT FOOT CLINICAL: Female, 53 years old. RIGHT LATERAL FOOT PAIN TECHNIQUE: 3 view(s) of the foot. COMPARISON: None. FINDINGS: Normal talus, calcaneus, and tarsal bones. Normal visualized subtalar, talonavicular, calcaneocuboid, tarsal and tarsometatarsal articulations. Normal metatarsi. Normal metatarsophalangeal joint of the great toe. Normal tibial and fibular sesamoid bones. Normal interphalangeal joint of the great toe. Normal phalanges of the great toe. Normal second through fifth metatarsophalangeal joints. Normal interphalangeal joints and phalanges of the lesser toes. The soft tissue structures are unremarkable. RAD/Foot min 3 Views IMPRESSION: Normal x-ray examination of the foot. Electronically Signed: Feliz Parrish MD at 16:24 EDT ,
== END | disposition home or self-care (01) ==
LOC: MTRAD 12:52
PROVIDERS: PCP Family Medicine; Referring Provider Family Medicine; Visit Provider Family Medicine
DX: M79.671 Pain in right foot (principal)
CPT/HCPCS: 73630

== ENCOUNTER 2024-02-05 18:42 | Emergency (ER) | payer OTHER, SELFPAY ==
[2024-02-05] VITALS (8 sets, daily range): BP systolic 109–140; BP diastolic 58–97; PULSE 42–103; RESP 12–18; TEMP 36.3–36.6; O2SAT 95–99; BMI 33.5
--- NOTE | 2024-02-05 19:17 | EKG12_ITS ---
Test Reason : PALPS Blood Pressure : / mmHG Vent. Rate : 125 BPM Atrial Rate : 000 BPM P-R Int : 000 ms QRS Dur : 072 ms QT Int : 298 ms P-R-T Axes : 000 031 -25 degrees QTc Int : 430 ms Atrial fibrillation with rapid ventricular response Nonspecific ST and T wave abnormality Abnormal ECG Confirmed by LEILA UMANZOR, SCOTT ([id number]), non linear editor LULA DE OLIVEIRA ([id number]) on 02/09/2024 8:18:17 AM Referred By: Confirmed By:SCOTT DEE MD
[2024-02-05 19:25] LABS: Absolute Lymphocyte Count 3.66 X10^3/uL (0.83-4.51); Absolute Neutrophil Count 8.5 X10^3/uL (2.0-7.7); Basophil# 0.06 X10^3/uL; Basophil% 0.5 % (0-1); Eosinophils% 0.8 % (0-5); Hematocrit 44.1 % (37-47); Hemoglobin 14.4 g/dL (12.0-15.0); Lymphocyte # 3.66 X10^3/ul (0.83-4.51); Lymphocyte % 28.1 % (19-41); Mean Corp Hgb Conc 32.7 g/dL (32-36); Mean Corpuscular Hgb 28.5 pg (27.0-32.0); Mean Corpuscular Volume 87.2 fL (81-99); Mean Platelet Vol. 9.3 fl (6.2-12.0); Monocyte# 0.67 X10^3/uL; Monocyte% 5.1 % (0-10); NRBC Flagged by Analyzer 0 % (0-5); Neutrophil # 8.48 X10^3/uL (2.7-7.7); Neutrophil % 65.1 % (47-70); Platelet Count 324 K/mm3 (150-450); RBC Distribution Width CV 14.2 % (11.6-14.6); Red Blood Count 5.06 M/mm3 (4.2-5.4)
[2024-02-05 19:45] LABS: Anion Gap 9 (5-15); BUN 9 mg/dL (7-18); Calcium,Total 9.5 mg/dL (8.5-10.1); Chloride 104 mmol/L (98-107); EST Glomerular Filtration Rate 70 mL/min (>60); Est Glom Filt Rate - Afr Amer 85 mL/min (>60); Estimated Creatinine Clearance 76.76 ml/min; Glucose 174 mg/dL (74-106); Potassium 3.4 mmol/L (3.5-5.1); Sodium Level 137 mmol/L (136-145); Troponin-I HS (w/2H Reflex) 4 pg/mL (3.0-54.0)
--- NOTE | 2024-02-05 19:48 | RAD_ITS ---
INDICATION: chest pain EXAMINATION/TECHNIQUE: X-RAY - XR Chest 1 View COMPARISON: FINDINGS: LINES/DEVICES: None. LUNGS: No consolidation, edema or effusion. No pneumothorax. MEDIASTINUM AND CARDIOVASCULAR STRUCTURES: Cardiac silhouette not enlarged. Central airways and mediastinal contour are unremarkable. BONES AND SOFT TISSUES: Degenerative vertebral changes. RAD/Chest 1 View (Portable) IMPRESSION: No radiographic evidence of acute cardiopulmonary disease. Electronically Signed: Gurwinder Cat DO at 20:50 EDT ,
--- NOTE | 2024-02-05 19:52 | EX.ED.DYSGE1 ---
HPI History of Present Illness Chief Complaint: Palpitations Informant: patient Narrative Narrative: 53-year-old female presenting to the emergency room with palpitations. 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 She states she has never had this before and she was alone as her went out of town and came to emergency. She states that she is treated for hypertension and hyperlipidemia. She currently takes 360 mg of diltiazem once a day. She has a history of Jigna's thyroiditis and reportedly takes methimazole. She gets her blood drawn twice a year through this hospital. She states that when she was a child she was told that she had mitral valve prolapse. She does have a history of sleep apnea. she notes a maternal history of atrial fibrillation. No prior stroke or thromboembolism or CHF. No history of diabetes or vascular disease. Patient quit smoking approximately 4-1/2 weeks ago [facility] Medical History Jigna's disease Sleep apnea MRKH syndrome Chronic headaches GERD (gastroesophageal reflux disease) Hyperlipidemia Anxiety Hypertension Home Medications ?Medication ?Instructions ?Recorded ?Last Taken ?Type omeprazole 40 mg capsule,delayed 40 mg PO DAILY 03/11/16 Unknown History release diltiazem HCl 120 mg 360 mg PO DAILY 06/14/20 Unknown History capsule,extended release 24 hr escitalopram oxalate 10 mg tablet 20 mg PO DAILY 07/06/20 Unknown History (Lexapro) methimazole 5 mg tablet 5 mg PO DAILY 02/05/24 Unknown History Allergy/AdvReac Type Severity Reaction Status Date / Time acetaminophen (From Vicodin) Allergy Unknown Verified 02/05/24 18:45 hydrocodone (From Vicodin) Allergy Unknown Verified 02/05/24 18:45 Penicillins (PCN) Allergy Rash Verified 02/05/24 18:45 Family History Mother Atrial fibrillation Father Multiple myeloma Surgical History Total knee replacement status Status post right partial knee replacement S/P tonsillectomy Social History household members: spouse Smoking Status: Former smoker Tobacco: How many years used: 20 alcohol intake: current details: occasionally substance use type: does not use caffeine: Yes what type of physical activity do you participate in: none seatbelt use: always do you feel safe at home: Yes additional social history: [employer] Patient does not work ROS ROS ED Constitutional Constitutional ED: Denies chills, fever(s) or weight loss Eyes Eyes: Denies change in vision or diplopia ENT ENT ED: Denies ear pain, rhinorrhea or sore throat Cardiovascular Cardiovascular: Reports palpitations and racing heartbeat; Denies chest pain or orthopnea Respiratory/Chest Respiratory/Chest: Denies cough, dyspnea or orthopnea Gastrointestinal Gastrointestinal: Denies abdominal pain, diarrhea, nausea or vomiting Genitourinary Genitourinary ED: Denies dysuria, hematuria or urinary frequency Musculoskeletal Musculoskeletal: Denies arthralgias or myalgias Integumentary Denies abscess or rash Neurologic Neurologic: Denies headache(s) or weakness Psychiatric Psychiatric: Denies anxiety, depression, suicidal ideation or suicidal thoughts Endocrine Endocrinology: Denies polydipsia, polyphagia or polyuria Allergic/Immunologic Allergic/Immunologic ED: Denies mouth swelling, tongue swelling or urticaria EXAM Physical Exam Const Vital Signs: 02/05/24 18:46 02/05/24 19:17 02/05/24 19:45 Temperature 97.3 F L Temperature Source Temporal Pulse Rate 42 L 103 H Respiratory Rate 18 15 Respiratory Effort Blood Pressure 132/58 H 140/86 H Blood Pressure Mean 82 104 Blood Pressure Source Blood Pressure Position Blood Pressure Location Pulse Ox 97 98 Oxygen Delivery Method Room Air Room Air Room Air 02/05/24 20:00 02/05/24 20:00 02/05/24 21:00 Temperature Temperature Source Pulse Rate 98 93 Respiratory Rate 12 18 Respiratory Effort Short of Breath Blood Pressure 140/86 H 130/89 H Blood Pressure Mean 104 102 Blood Pressure Source Blood Pressure Position Blood Pressure Location Pulse Ox 97 95 Oxygen Delivery Method Room Air Room Air 02/05/24 21:43 02/05/24 22:00 02/05/24 23:00 Temperature Temperature Source Pulse Rate 100 88 81 Respiratory Rate 12 17 15 Respiratory Effort Blood Pressure 130/85 H 109/97 H 129/81 H Blood Pressure Mean 100 101 97 Blood Pressure Source Monitor Blood Pressure Position Semi-Fowlers Blood Pressure Location Left Arm Pulse Ox 99 97 99 Oxygen Delivery Method Room Air Room Air Room Air Positive well nourished and well developed General Appearance ED: well developed HEENT Reports normocephalic, head/scalp atraumatic and moist mucous membranes Eyes PERRL and EOMs intact bilaterally Neck no lymphadenopathy, supple and no JVD Resp normal respiratory effort and clear to auscultation bilaterally Cardio no murmurs Rate: tachycardic Rhythm: abnormal rhythm irregularly irregular GI normal to inspection, nondistended, normoactive bowel sounds and non-tender Palpation: soft Back/Spine no CVA tenderness and normal ROM Extremity normal to inspection General Extremety ED: Negative for edema General Extremity: Negative for edema Neuro oriented x3 and CN's II-XII intact bilaterally Sensorium / Orientation: alert Motor Exam: strength 5/5 throughout Psych mental status grossly normal Mood & Affect: Negative for depressed or tearful Skin no rashes or lesions noted and no wounds MDM MDM MDM Narrative Medical decision making narrative: Differential diagnosis includes but not limited to cardiac dysrhythmia lecture light abnormality thyroid disorder valvular abnormality ACS My independent interpretation of the chest x-ray is no acute process white count is 13 hemoglobin 14.4. Normal troponin. TSH 3.4 magnesium 2.3 potassium 3.4 sodium 137. Patient was given 20 mg of Cardizem still remains with a heart rate of 100-1 20 and in atrial fibrillation. There was a brief couple minutes where the patient appeared to be in a normal sinus rhythm but then went back into atrial fibrillation. She was placed on the drip at 10 mg/h. Heart rate is in the 80s and is intermittently in sinus. I will speak with the hospitalist regarding admission. [id number] score is 2. Update: 2335 hrs. Hospitalist informs me the patient is upset and does not wish to stay in the hospital. She is now in a normal sinus rhythm. Will get and get her a dose of her diltiazem as she has not yet had it today. We can then shut off the drip and observe her and if she stays in a sinus rhythm I think it is reasonable to discharge her. Patient instead wishes to leave AMA. I would have him begin a daily aspirin. I have asked that she be taking her diltiazem daily follow-up with cardiology. History & Record Review Discussion w/independent historian: Patient Lab Data Attestation: I reviewed the patient's lab results. Labs: Laboratory Results - last 24 hr 02/05/24 02/05/24 19:20 21:40 WBC 13.0 H RBC 5.06 Hgb 14.4 Hct 44.1 MCV 87.2 MCH 28.5 MCHC 32.7 RDW Std Deviation 45.0 H RDW Coeff of Grady 14.2 Plt Count 324 MPV 9.3 Immature Gran % (Auto) 0.400 Neut % (Auto) 65.1 Lymph % (Auto) 28.1 [place] % (Auto) 5.1 Eos % (Auto) 0.8 Baso % (Auto) 0.5 Absolute Neuts (auto) 8.5 H Absolute Lymphs (auto) 3.66 Nucleated RBC % 0 Sodium 137 Potassium 3.4 L Chloride 104 Carbon Dioxide 24.0 Anion Gap 9 BUN 9 Creatinine 0.90 Estim Creat Clear Calc 76.76 Est GFR (MDRD) Af Amer 85 Est GFR (MDRD) Non-Af 70 BUN/Creatinine Ratio 10.0 Glucose 174 H Calcium 9.5 Magnesium 2.3 Troponin I High Sens 4 4 TSH 3.400 Radiography Diagnostic Testing: Clinical Impression(s) from Imaging Studies Chest X-Ray 02/05/24 19:48 IMPRESSION: No radiographic evidence of acute cardiopulmonary disease. Electronically Signed: Gurwinder Cat DO at 20:50 EDT Reading Location ID and State: [address] [place] [address] Tel [phone], Service support , EKG Initial EKG: Attestation: I personally reviewed and interpreted this EKG as follows: Comments: Atrial fibrillation with rapid ventricular response at 125 beats Management Discussion w/another healthcare provider: Hospitalist Discharge Plan Triage Chief Complaint: Palpitations ED Provider: Simeon James Dx/Rx/DC Orders Clinical Impression: New onset atrial fibrillation, Hypertension, Hyperlipidemia, Heart palpitations Primary Care Provider: Lexis Benson Disposition Disposition: Against Medical Advice
[2024-02-05] MEDS: dilTIAZem 25 MG/5 ML Vial 20 MG IV BOLUS (19:54)
[2024-02-05 19:58] LABS: Magnesium 2.3 mg/dL (1.6-2.6)
[2024-02-05 21:22] LABS: Reflex Troponin-HS? (from REC) Y
[2024-02-05] MEDS: Diltiazem 125 MG in Dextrose 5%-Water (100mL Bag) 100 ML 10 MG IV (21:43)
[2024-02-05 22:13] LABS: Troponin-I HS 4 pg/mL (3.0-54.0)
--- NOTE | 2024-02-05 22:59 | HP.PCM.HOS_ITS ---
HPI - General General Date of Admission: 02/05/24 Date of Service: 02/05/24 Chief Complaint: Palpitations, new onset. 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 She denies this ever having happened previously. She does report a family history specifically her mother of atrial fibrillation but is never suffered from this prior. Patient does report being stressed as her recently left for town and her son-in-law is leaving for nearly a year/deployment. Workup in the ED included T97.3, heart rate initially 42 however then fiona to 103, most recent repeat heart rate 88, BP initially 132/58 with most recent repeat 109/97, respiratory rate 18, 97% on room air, CBC with WBC 13, human 14.4, MCV 87.2, platelet 324 with left shift, BMP with potassium 3.4, glucose 174, magnesium 2.3, TSH 3.4, troponin 4 with repeat delta 4, chest x-ray with no acute cardiopulmonary findings, EKG atrial fibrillation with RVR. In the ED ED physician reports that she transiently appeared to attempted going to sinus but then would continue to go back into RVR. In the ED patient ministered Cardizem bolus 20 mg IV x 1 and eventually transition to Cardizem drip. Discussed with the ED physician and COVID PCR will be obtained in the ED. In the ED during evaluation patient was noted to be in sinus rhythm on the drip and fortunately following seem to remain in this for approximately 25 minutes at that time with discussion with patient and ED physician for preference to reinitiate home oral regimen with diltiazem 360 mg p.o. x 1 as she had not taken it on day of presentation, shut drip off and if patient remained in sinus rhythm plan to discharge to home with follow-up outpatient per her preference. [facility] Medical History Jigna's disease Sleep apnea MRKH syndrome Chronic headaches GERD (gastroesophageal reflux disease) Hyperlipidemia Anxiety Hypertension Home Medications ?Medication ?Instructions ?Recorded ?Last Taken ?Type omeprazole 40 mg capsule,delayed 40 mg PO DAILY 03/11/16 Unknown History release diltiazem HCl 120 mg 360 mg PO DAILY 06/14/20 Unknown History capsule,extended release 24 hr escitalopram oxalate 10 mg tablet 20 mg PO DAILY 07/06/20 Unknown History (Lexapro) methimazole 5 mg tablet 5 mg PO DAILY 02/05/24 Unknown History Allergy/AdvReac Type Severity Reaction Status Date / Time acetaminophen (From Vicodin) Allergy Unknown Verified 02/05/24 18:45 hydrocodone (From Vicodin) Allergy Unknown Verified 02/05/24 18:45 Penicillins (PCN) Allergy Rash Verified 02/05/24 18:45 Family History Mother Atrial fibrillation Father Multiple myeloma Surgical History Total knee replacement status Status post right partial knee replacement S/P tonsillectomy Social History household members: spouse Smoking Status: Former smoker Tobacco: How many years used: 20 alcohol intake: current details: occasionally substance use type: does not use caffeine: Yes what type of physical activity do you participate in: none seatbelt use: always do you feel safe at home: Yes 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 HEENT: Eyes: No visual loss, blurred vision, double vision or yellow sclerae. Ears, Nose, Throat: No hearing loss, sneezing, congestion, runny nose or sore throat. SKIN: No rash or itching, lesions, wounds. CARDIOVASCULAR: + Palpitations. No chest pain, chest pressure or chest discomfort, edema, orthopnea, syncopal events. RESPIRATORY: No shortness of breath, cough or sputum, wheezing, hemoptysis. GASTROINTESTINAL: No anorexia, nausea, vomiting or diarrhea, abdominal pain, melena, BRBPR. GENITOURINARY: No dysuria, frequency, urgency or retention. NEUROLOGICAL: No headache, dizziness, syncope, paralysis, ataxia, numbness or tingling in the extremities, focal weakness, change in bowel or bladder control, seizure. MUSCULOSKELETAL: No muscle, back pain, joint pain or stiffness. HEMATOLOGIC: No anemia, bleeding or bruising. LYMPHATICS: No enlarged nodes. No history of splenectomy. PSYCHIATRIC: + History of anxiety and depression. ENDOCRINOLOGIC: No reports of sweating, cold or heat intolerance. No polyuria or polydipsia. ALLERGIES: No history of asthma, hives, eczema or rhinitis. Vital Signs Vital Signs Vital Signs: 02/05/24 18:46 02/05/24 19:17 02/05/24 19:45 Temperature 97.3 F L Temperature Source Temporal Pulse Rate 42 L 103 H Respiratory Rate 18 15 Respiratory Effort Blood Pressure 132/58 H 140/86 H Blood Pressure Mean 82 104 Blood Pressure Source Blood Pressure Position Blood Pressure Location Pulse Ox 97 98 Oxygen Delivery Method Room Air Room Air Room Air 02/05/24 20:00 02/05/24 20:00 02/05/24 21:00 Temperature Temperature Source Pulse Rate 98 93 Respiratory Rate 12 18 Respiratory Effort Short of Breath Blood Pressure 140/86 H 130/89 H Blood Pressure Mean 104 102 Blood Pressure Source Blood Pressure Position Blood Pressure Location Pulse Ox 97 95 Oxygen Delivery Method Room Air Room Air 02/05/24 21:43 02/05/24 22:00 Temperature Temperature Source Pulse Rate 100 88 Respiratory Rate 12 17 Respiratory Effort Blood Pressure 130/85 H 109/97 H Blood Pressure Mean 100 101 Blood Pressure Source Monitor Blood Pressure Position Semi-Fowlers Blood Pressure Location Left Arm Pulse Ox 99 97 Oxygen Delivery Method Room Air Room Air Weight Weight: 189 lb 1.6 oz Body Mass Index (BMI) 33.5 Physical Exam Narrative Physical Examination: General: Awake, alert, oriented x 3 and cooperative, seated upright in the ED bed, remains in sinus rhythm on monitor, denies any palpitations. Skin: Normal color, normal turgor, no icterus, no cyanosis. HEENT: AT/NC, EOMI, PERRLA, MMM, no carotid bruits or JVD noted. Lungs: CTA bilaterally, moderate effort, mild decrease BL bases, no rales, ronchi or wheezing. Heart: Currently appears converted, regular rate and rhythm; no gallop, rub audible, + SM. Abdomen: Soft, obese, NTTP, ND, mildly hyperactive BS, no appreciated HSM. Extremities: No cyanosis, clubbing, or edema. Neurological: Patient awake, alert, oriented as noted, cognitive function intact; pupils equally reactive to light and accommodation, cranial nerves grossly normal, moving all 4 extremities, no focal deficits, strength preserved. Psychiatric: Affect appears initially normal but during evaluation patient did become upset with discussions about her medical history, otherwise no acute evidence of depressive or anxiety feelings but does have underlying history. Results Lab / Micro Data 02/05/24 19:20 02/05/24 19:20 Labs: Laboratory Results - last 24 hr 02/05/24 19:20: WBC 13.0 H, RBC 5.06, Hgb 14.4, Hct 44.1, MCV 87.2, MCH 28.5, MCHC 32.7, RDW Std Deviation 45.0 H, RDW Coeff of Grady 14.2, Plt Count 324, MPV 9.3, Immature Gran % (Auto) 0.400, Neut % (Auto) 65.1, Lymph % (Auto) 28.1, Morrill % (Auto) 5.1, Eos % (Auto) 0.8, Baso % (Auto) 0.5, Absolute Neuts (auto) 8.5 H, Absolute Lymphs (auto) 3.66, Nucleated RBC % 0, Sodium 137, Potassium 3.4 L, Chloride 104, Carbon Dioxide 24.0, Anion Gap 9, BUN 9, Creatinine 0.90, Estim Creat Clear Calc 76.76, Est GFR (MDRD) Af Amer 85, Est GFR (MDRD) Non-Af 70, BUN/Creatinine Ratio 10.0, Glucose 174 H, Calcium 9.5, Magnesium 2.3, Troponin I High Sens 4, TSH 3.400 02/05/24 21:40: Troponin I High Sens 4 Imaging Radiology Impression Chest X-Ray 02/05/24 19:48 IMPRESSION: No radiographic evidence of acute cardiopulmonary disease. Electronically Signed: Gurwinder Cat DO at 20:50 EDT Reading Location ID and State: 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 #1. Paroxsymal atrial fibrillation w/ RVR: EKG in ED w/ atrial fibrillation w/ RVR. Patient administered Cardizem bolus and transition to drip in ED. as noted patient did convert in the ED and currently her preference is to potentially discharge to home. Plan will be for patient to take her oral diltiazem and if she remains in sinus rhythm following the drop also being shut off then ED physician will plan to discharge with follow-up outpatient otherwise would plan to continue with PCU admission. If admission is necessary would plan to maintain on telemetry, obtain serial cardiac enzymes set, obtain ECHO, FLP in AM, initiate Eliquis regimen in case of recurrent PAF RVR although patient does have a lower [id number] score however this would purely be in case of future cardioversion needs, pending COVID PCR testing is noted, strongly encouraged reduction in her caffeine intake and compliance with CPAP as these could contribute to her PAF onset. #2. Hyperglycemia no diabetic history: Admission glucose 174, possibly or stress response, hemoglobin A1c would be obtained to be cautious. #3. Hypokalemia: Admission K+ 3.4, magnesium 2.3, supplementation given, will plan to repeat level in AM. #4. 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 During conversation about her syndrome patient did have the appearance of being very upset and did attempt to discuss this with her noting that she felt it was not medically appropriate to discuss this given that she was being admitted for a cardiac issue but attempted to discuss the fact that sometimes other organ involvement if it was type II could certainly be a component or contribution and there being a need for full medical history awareness. ED nursing staff was present in the room for these conversations. #5. Hyperthyroidism: TSH 3.40, will continue patient home methimazole regimen, encourage continued outpatient follow-up with endocrinology as previously arranged. #6. Obesity: Weight loss and lifestyle changes encouraged. #7. RUBI: Patient reports that she is not necessarily is compliant with her CPAP as she should be and discussed at length that this certainly could contribute to onset of PAF with RVR. As noted above if patient does remain with maintain on CPAP nightly. #8. Anxiety and depression: We will continue patient on escitalopram regimen. #9. Former tobacco use: Recent cessation approximately 1 month prior, encourage continued tobacco cessation. #10. Hypertension: As noted above initially maintained on IV Cardizem, attempting to transition back to oral diltiazem with discharge to home but if unable and she has recurrent RVR if drip is not necessary then would continue only oral diltiazem, as needed IV hydralazine if needed. #11. Hyperlipidemia: Not on regimen, defer to outpatient. #12. GERD: Continue patient on PPI. #13. DVT prophylaxis: Will initiate on Eliquis regimen as noted in case of recurrent PAF with RVR in case of need for future cardioversion. Charges/Coding Multi Select Codes Visit Charges Office Visit/Consults: 16063 ED Visit; High/Urgent Severity
[2024-02-05] MEDS: dilTIAZem CD 180 MG Capsule 360 MG PO (23:43)
--- NOTE | 2024-02-06 05:34 | ED.RN ---
This RN in room during Dr. Colvin's assessment in the ED. When DR asked pt questions regarding a congenital health issue, the pt became defensive and distant to DR during assessment. Pt asked why the mentioned medical diagnosis is pertinent to Afib. Dr. Colvin educated pt why the medical condition could be pertinent to her developing AFIB RVR. Shortly after Dr. Colvin's assessment, pt requested to leave against medical advice, Dr. James notified. Pt was tearful at time of discharge and apologized to this RN and thanked this RN for her care during her ER visit. Pt informed on the health risks of leaving AMA
== END 2024-02-06 00:07 | disposition left against medical advice (07) ==
LOC: ED 22:38 → PCU 23:49
PROVIDERS: Emergency Provider Emergency Medicine; PCP Family Medicine; Visit Provider Emergency Medicine
DX: R00.2 Palpitations (principal); I48.91 Unspecified atrial fibrillation; E78.5 Hyperlipidemia, unspecified; F41.9 Anxiety disorder, unspecified; Z87.891 Personal history of nicotine dependence; I10 Essential (primary) hypertension; Z79.899 Other long term (current) drug therapy; E06.3 Autoimmune thyroiditis; K21.9 Gastro-esophageal reflux disease without esophagitis
CPT/HCPCS: 71045; 80048; 83735; 84443; 84484; 85025; 87631; 93005; 99283; A4216

== ENCOUNTER → 2024-02-23 | Outpatient (CLI) | payer OTHER, SELFPAY | END | disposition home or self-care (01) | PROVIDERS: PCP Family Medicine; Referring Provider Family Medicine; Visit Provider Family Medicine | DX: I48.0 Paroxysmal atrial fibrillation (principal); R00.2 Palpitations | CPT/HCPCS: 93225; 93226 ==

== ENCOUNTER → 2024-02-25 | Outpatient (CLI) | payer OTHER, SELFPAY ==
--- NOTE | 2024-02-25 12:47 | ECHOD_ITS ---
Reason For Study: AFIB Procedure This was a 2D Doppler, Color Flow transthoracic echocardiogram. Exam performed in department. Left Ventricle Normal LV size. The estimated ejection fraction is 65 %. No evidence for diastolic dysfunction. No regional wall motion abnormalities noted. Right Ventricle Normal RV size. Normal systolic function. Atria Normal left atrium. Normal right atrium. No doppler evidence for ASD. Mitral Valve There is no mitral valve stenosis. No mitral valve insufficiency. Tricuspid Valve There is no tricuspid stenosis. Unable to estimate RV systolic pressure due to insufficient tricuspid regurgitant envelope. Aortic Valve Trisinus/trileaflet aortic valve. There is no aortic stenosis. No aortic valve insufficiency. Pulmonic Valve There is no pulmonic valvular stenosis. No pulmonic valve insufficiency. Great Vessels Normal aortic root. Pericardium/Pleural No pericardial effusion. MMode/2D Measurements & Calculations LVIDd: 4.6 cm IVSd: 0.96 cm Ao root diam: 2.8 cm LVIDs: 2.8 cm LVPWd: 1.1 cm RVDd: 2.5 cm FS: 38.7 % LAV(MOD-bp): 18.3 ml LVAd ap4: 25.2 cm2 SV(MOD-sp4): 46.4 ml LAV(MOD-bp) Indexed: 10.0 ml/m2 LVLd ap4: 7.5 cm LAV(MOD-sp2): 21.6 ml EDV(MOD-sp4): 69.5 ml LAV(MOD-sp4): 15.6 ml EDV(sp4-el): 72.3 ml LVAs ap4: 13.1 cm2 LVLs ap4: 6.3 cm ESV(MOD-sp4): 23.1 ml ESV(sp4-el): 23.1 ml EF(MOD-sp4): 66.8 % EF(sp4-el): 68.0 % SV(sp4-el): 49.2 ml LA A4 area: 8.8 cm2 LA dimension(2D): 3.2 cm RA A4 area: 7.9 cm2 TAPSE: 2.0 cm Time Measurements MV dec time: 0.25 sec Doppler Measurements & Calculations MV E max eddie: 59.7 cm/sec Lat Peak E' Eddie: 11.4 cm/sec Med Peak E' Eddie: 11.6 cm/sec MV A max eddie: 76.5 cm/sec E/E' lat: 5.2 E/E' med: 5.2 MV E/A: 0.78 Ao V2 max: 163.7 cm/sec LV V1 max: 156.1 cm/sec PA V2 max: 132.2 cm/sec Ao max P.7 mmHg LV V1 max P.7 mmHg ECHO/Echo Complete Interpretation Summary The estimated ejection fraction is 65 %. No evidence for diastolic dysfunction. Ordering Physician: Lexis Benson Referring Physician: Lexis Bensno Performed By: Samantha Corral, NASH
== END | disposition home or self-care (01) ==
LOC: CVS 12:47
PROVIDERS: PCP Family Medicine; Referring Provider Family Medicine; Visit Provider Family Medicine
DX: I48.91 Unspecified atrial fibrillation (principal)
CPT/HCPCS: 93306

== ENCOUNTER → 2024-04-27 | Outpatient (CLI) | payer OTHER, SELFPAY ==
--- NOTE | 2024-04-27 13:10 | RAD_ITS ---
STUDY: X-RAY - LUMBAR SPINE REASON FOR EXAM: Female, 53 years old. BACK PAIN TECHNIQUE: 4 view(s) of the lumbar spine were obtained. COMPARISON: None FINDINGS: Normal lumbar lordosis. There is no substantial scoliosis. There is a normal alignment of the vertebrae. Normal vertebral bodies and endplates. Normal disc space heights. The soft tissue structures are unremarkable. RAD/L/S Spine Min 4 Views IMPRESSION: No acute pathology of the lumbar spine. Electronically Signed: Gurwinder Cat DO at 10:14 EST ,
--- NOTE | 2024-04-27 13:10 | RAD_ITS ---
INDICATION: HIP PAIN EXAMINATION/TECHNIQUE: X-RAY - XR Hip Unilateral with Pelvis when performed; 2-3 Views LEFT COMPARISON: No relevant prior comparison study available FINDINGS: No fracture demonstrated. Femoral heads are normal in contour. No dislocation at the hips. The hip joint spaces are maintained. RAD/HIP, UNI W/ Pelvis 2-3 Views IMPRESSION: No evidence of fracture. No acute findings. Electronically Signed: Honey Whaley MD at 16:13 EST ,
== END | disposition home or self-care (01) ==
LOC: MTRAD 13:08
PROVIDERS: PCP Family Medicine; Referring Provider Family Medicine; Visit Provider Family Medicine
DX: M54.9 Dorsalgia, unspecified (principal); M25.552 Pain in left hip
CPT/HCPCS: 72110; 73502

== ENCOUNTER → 2024-07-05 | Outpatient (CLI) | payer OTHER, SELFPAY ==
[2024-07-05 16:00] LABS: Absolute Lymphocyte Count 3.14 X10^3/uL (0.83-4.51); Absolute Neutrophil Count 4.1 X10^3/uL (2.0-7.7); Basophil# 0.06 X10^3/uL; Basophil% 0.7 % (0-1); Eosinophil# 0.13 X10^3/uL; Eosinophils% 1.6 % (0-5); Hematocrit 45.5 % (37-47); Hemoglobin 14.4 g/dL (12.0-15.0); Lymphocyte # 3.14 X10^3/ul (0.83-4.51); Lymphocyte % 39.2 % (19-41); Mean Corp Hgb Conc 31.6 g/dL (32-36); Mean Corpuscular Hgb 28.2 pg (27.0-32.0); Mean Platelet Vol. 10.4 fl (6.2-12.0); Monocyte# 0.56 X10^3/uL; NRBC Flagged by Analyzer 0 % (0-5); Neutrophil # 4.12 X10^3/uL (2.7-7.7); Neutrophil % 51.4 % (47-70); Platelet Count 257 K/mm3 (150-450); RBC Distribution Width CV 14.1 % (11.6-14.6); RBC Distribution Width SD 45.4 fl (35.1-43.9); Red Blood Count 5.11 M/mm3 (4.2-5.4)
[2024-07-05 16:07] LABS: Hemoglobin A1c 4.6 % (3.8-5.6)
[2024-07-05 16:24] LABS: ALB/GLOB Ratio 1.1 RATIO (0.9-2.4); AST(SGOT) 65 U/L (15-37); Alanine Aminotransfer ALT/SGPT 91 U/L (13-56); Albumin, Serum 4.1 g/dL (3.2-5.0); Alkaline Phosphatase 94 U/L (45-117); Anion Gap 9 (5-15); BUN 11 mg/dL (7-18); BUN/Creat Ratio 12.7 RATIO (10-20); Calcium,Total 9.1 mg/dL (8.5-10.1); Chloride 103 mmol/L (98-107); Creatinine, Serum 0.87 mg/dL (0.55-1.02); EST Glomerular Filtration Rate 73 mL/min (>60); Est Glom Filt Rate - Afr Amer 88 mL/min (>60); Globulin 3.8 g/dL (2.2-4.2); Glucose 157 mg/dL (74-106); Potassium 3.8 mmol/L (3.5-5.1); Protein, Total 7.9 g/dL (6.4-8.2); Sodium Level 136 mmol/L (136-145)
== END | disposition home or self-care (01) ==
LOC: BFHLAB 11:50
PROVIDERS: PCP Family Medicine; Referring Provider Family Medicine; Visit Provider Family Medicine
DX: Z51.81 Encounter for therapeutic drug level monitoring (principal); E03.9 Hypothyroidism, unspecified; R73.01 Impaired fasting glucose; R74.8 Abnormal levels of other serum enzymes
CPT/HCPCS: 36415; 80053; 83036; 84439; 84443; 84481; 85025

== ENCOUNTER → 2025-03-23 | Outpatient (CLI) | payer OTHER, SELFPAY ==
--- NOTE | 2025-03-23 14:33 | BI_ITS ---
EXAM: SCRN MAMM (CAD)W/LOUIS BILAT DATE: 03/23/2025 CLINICAL HISTORY: F, Age 54 y/o , SCREENING Aunt with breast cancer. TECHNIQUE: Procedure Code: [id number] Modality: MG Procedure: SCRN MAMM (CAD)W/LOUIS BILAT COMPARISON: Prior exam(s) dated November 07, 2023.. FINDINGS: TISSUE DENSITY: There are scattered areas of fibroglandular density. Bilateral Breast Mammographic Findings: No significant masses, calcifications or other abnormalities are identified. No suspicious masses, areas of developing architectural distortion, or suspicious calcifications. There has been no significant interval change. BI/SCRN MAMM (CAD)W/LOUIS BILAT IMPRESSION: Stable bilateral screening mammogram. OVERALL FINAL ASSESSMENT BI-RADS 1: NEGATIVE. RECOMMENDATION: Routine annual follow-up in 1 Year Additional Recommendation none A letter with findings and recommendations will be mailed to the patient. Reading Location: [place] [address]
== END | disposition home or self-care (01) ==
LOC: OPBI 14:32
PROVIDERS: PCP Family Medicine; Referring Provider Family Medicine; Visit Provider Family Medicine
DX: Z12.31 Encounter for screening mammogram for malignant neoplasm of breast (principal); Z80.3 Family history of malignant neoplasm of breast
CPT/HCPCS: 77063; 77067

== ENCOUNTER 2025-04-12 08:17 | Day surgery (SDC) | payer OTHER, SELFPAY ==
--- NOTE | 2025-04-04 09:35 | PAT.ANE_ITS ---
Pre-Assessment Diagnosis/Proposed Procedure Planned Operative Procedure(s): Colonoscopy, EGD in OR. THD Hemorrhoidectomy. 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 When Was Last Pacemaker Check QUESTION #4 FULL TEXT: You/Your Family Experience fever (hyperthermia) with Anesthesia Last Oral Intake Last Oral intake: Last Oral Intake NPO since Meds taken in AM with sips of water? Meds patient instructed to take am of surgery PONV PONV - coil connector repairer: PONV - coil connector repairer Female Yes 04/04/25 08:14 HX of Motion Sickness Yes 04/04/25 08:14 HX of N/V After Surgery No 04/04/25 08:14 Non-Smoker Yes 04/04/25 08:14 Duration of Surgery greater No 04/04/25 08:14 than 60 minutes Number of Risk Factors 3 04/04/25 08:14 PONV Score Moderate Risk 04/04/25 08:14 Height & Weight Height & Weight: Anesthesia: Height & Weight Height 5 ft 3 in 03/23/25 13:02 Respiratory Assessment Respiratory Assessment - coil connector repairer: Respiratory Tract Infection Hx - coil connector repairer Hx Respiratory Tract Infection No 04/04/25 08:14 STOP Sleep Apnea STOP Sleep Apnea - coil connector repairer: STOP Sleep Apnea - coil connector repairer Hx Hypertension Yes: CONTROLLED WITH MED 04/04/25 08:14 Hx Sleep Apnea Yes 04/04/25 08:14 CPAP Yes: NONCOMPLIANT 04/04/25 08:14 BIPAP No 04/04/25 08:14 Do you snore loudly (louder No 04/04/25 08:14 than talking or can be heard Do you often feel tired/ No 04/04/25 08:14 fatigued/ sleepy during daytime? Has anyone observed you stop No 04/04/25 08:14 breathing during sleep? STOP Results Positive 04/04/25 08:14 QUESTION #5 FULL TEXT : Do you snore loudly (louder than talking or can be heard through closed doors)? 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 Specify any problems Hx of Preganancy in last 3 N/A 04/04/25 08:14 Months Nurse Filling Out Transfusion NBUCHER 04/04/25 08:14 & Questions: Date: 04/04/25 04/04/25 08:14 Time: 08:16 04/04/25 08:14 Patient unable to answer at this time (ie. confused, unrespo /Reproduction History /Reproductive History - coil connector repairer: /Reproductive Hx- coil connector repairer Hx Now No 04/04/25 08:14 Gestational Age (in weeks): EDC: Hx Hx Para Hx Section SAB No 04/04/25 08:14 [facility] Medical History (Updated 04/04/25 @ 08:23 by Stacy Segal) Post-menopausal Marijuana use Thyroid disease Arthritis Fatty liver Restless legs Dietary restriction History of IBS CPAP (continuous positive airway pressure) dependence Former smoker History of Holter monitoring History of echocardiogram History of atrial fibrillation Diabetes Diarrhea Hemorrhoids Jigna's disease Sleep apnea MRKH syndrome Chronic headaches GERD (gastroesophageal reflux disease) Hyperlipidemia Anxiety Hypertension Home Medications ?Medication ?Instructions ?Recorded ?Last Taken ?Type omeprazole 40 mg capsule,delayed 40 mg PO DAILY Unknown History release diltiazem HCl 120 mg 360 mg PO QHS 06/14/20 Unkno wn History capsule,extended release 24 hr escitalopram oxalate 10 mg tablet 20 mg PO DAILY 07/06 Unknown History (Lexapro) methimazole 5 mg tablet 5 mg PO QHS 02/05/24 Unknown History Allergy/AdvReac Type Severity Reaction Status Date / Time acetaminophen (From Vicodin) Allergy Unknown Verified 04/04/25 08:13 hydrocodone (From Vicodin) Allergy Unknown Verified 04/04/25 08:13 Penicillins (PCN) Allergy Rash Verified 04/04/25 08:13 Family History Mother Atrial fibrillation Father Multiple myeloma Surgical History (Updated 04/04/25 @ 08:23 by Stacy Segal) History of colonoscopy History of esophagogastroduodenoscopy (EGD) Total knee replacement status Status post right partial knee replacement S/P tonsillectomy Social History household members: spouse Smoking Status: Former smoker Tobacco: How many years used: 20 alcohol intake: current details: occasionally substance use type: does not use caffeine: Yes what type of physical activity do you participate in: none seatbelt use: always do you feel safe at home: Yes 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 Atrial fibrillation with rapid ventricular response. [address] and T wave abnormality. Echo (EF%) pertinent findings: 02/25/2024. Ejection fraction 65%. Recommendation Anesthesia Recommendation Anesthesia recommendation: OPTIMIZED for anesthesia
[2025-04-12] VITALS (12 sets, daily range): BP systolic 118–155; BP diastolic 66–92; PULSE 71–90; RESP 16–20; TEMP 36.1–36.6; O2SAT 98–100; BMI 32.8
[2025-04-12] MEDS: Lactated Ringers 1,000 ML 15 ML IV ×2 (09:02→12:27)
--- NOTE | 2025-04-12 09:15 | PCM.PRE.AN2 ---
ASA Classification* ASA Classification ASA Classification: 3 (HTN, GERD, Anxiety, RUBI w/ CPAP, pAF , smoker) Assessment & Plan Anesthesia* Anesthesia Assessment Anesthesia Assessment: Discussed sedation and/or anesthesia options, risks, benefits, and alternatives with patient/parents/legal guardian/POA. Questions invited. The patient/parents/legal guardian/POA seems to understand and agrees to proceed with anesthesia plan. Reviewed the physical assessment, medical history, allergy history and patient home medications list prior to surgery/procedure/anesthetic and documented any changes. Performed airway and anesthesia risk assessments. Anesthesia Type Anesthesia Type: General History Source History Obtained from:: Patient and Chart Anesthesia Focused Assessment* Temperature: 97.0 F Pulse Rate: 87 Blood Pressure: 118/92 Respiratory Rate: 16 Pulse Ox: 98 Oxygen Delivery Method: Room Air Airway Assessment Mouth opens: >3 cm Mallampati Score: III Labs Anesthesia Preop lab: CBC WBC, (4.4-11.0) 8.0 K/mm3 07/05/24, 11:51 RBC, (4.2-5.4) 5.11 M/mm3 07/05/24, 11:51 Hgb, (12.0-15.0) 14.4 g/dL 07/05/24, 11:51 Hct, (37-47) 45.5 % 07/05/24, 11:51 Plt Count, (150-450) 257 K/mm3 07/05/24, 11:51 CHEMISTRY Potassium, (3.5-5.1) 3.8 mmol/L 07/05/24, 11:51 Sodium, (136-145) 136 mmol/L 07/05/24, 11:51 Magnesium, (1.6-2.6) 2.3 mg/dL 02/05/24, 19:20 BUN, (7-18) 11 mg/dL 07/05/24, 11:51 Creatinine, (0.55-1.02) 0.87 mg/dL 07/05/24, 11:51 Glucose, (74-106) 157 mg/dL H 07/05/24, 11:51 TSH, (0.358-3.740) 1.580 uIU/mL 07/05/24, 11:51 COAG PT, (11.7-14.9) 13.0 SECONDS 03/11/19, 13:09 Pre-Assessment Diagnosis/Proposed Procedure Planned Operative Procedure(s): Colonoscopy, EGD in OR. THD Hemorrhoidectomy. 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 When Was Last Pacemaker Check QUESTION #4 FULL TEXT: You/Your Family Experience fever (hyperthermia) with Anesthesia Last Oral Intake Last Oral intake: Last Oral Intake NPO since 23:00 04/12/25 08:54 Meds taken in AM with sips of No 04/12/25 08:54 water? Meds patient instructed to take am of surgery PONV PONV - cotton program technician: PONV - cotton program technician Female Yes 04/04/25 08:14 HX of Motion Sickness Yes 04/04/25 08:14 HX of N/V After Surgery No 04/04/25 08:14 Non-Smoker Yes 04/04/25 08:14 Duration of Surgery greater No 04/04/25 08:14 than 60 minutes Number of Risk Factors 3 04/04/25 08:14 PONV Score Moderate Risk 04/04/25 08:14 Height & Weight Height & Weight: Anesthesia: Height & Weight Height 5 ft 3 in 04/12/25 08:54 Weight: 83.9 kg 04/12/25 08:54 Body Mass Index (BMI) 32.8 04/12/25 08:54 Respiratory Assessment Respiratory Assessment - cotton program technician: Respiratory Tract Infection Hx - cotton program technician Hx Respiratory Tract Infection No 04/04/25 08:14 STOP Sleep Apnea STOP Sleep Apnea - cotton program technician: STOP Sleep Apnea - cotton program technician Hx Hypertension Yes: CONTROLLED WITH MED 04/04/25 08:14 Hx Sleep Apnea Yes 04/04/25 08:14 CPAP Yes: NONCOMPLIANT 04/04/25 08:14 BIPAP No 04/04/25 08:14 Do you snore loudly (louder No 04/04/25 08:14 than talking or can be heard Do you often feel tired/ No 04/04/25 08:14 fatigued/ sleepy during daytime? Has anyone observed you stop No 04/04/25 08:14 breathing during sleep? STOP Results Positive 04/04/25 08:14 QUESTION #5 FULL TEXT : Do you snore loudly (louder than talking or can be heard through closed doors)? 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 Specify any problems Hx of Preganancy in last 3 N/A 04/04/25 08:14 Months Nurse Filling Out Transfusion NBUCHER 04/04/25 08:14 & Questions: Date: 04/04/25 04/04/25 08:14 Time: 08:16 04/04/25 08:14 Patient unable to answer at this time (ie. confused, unrespo /Reproduction History /Reproductive History - cotton program technician: /Reproductive Hx- cotton program technician Hx Now No 04/04/25 08:14 Gestational Age (in weeks): EDC: Hx Hx Para Hx Section SAB No 04/04/25 08:14 Does the father of the baby or his family experience fever w Father of the baby Malignant Hypertension history comment Active Medications Active Medications: Current Medications Generic Name Dose Route Start Last Admin Trade Name Freq PRN Reason Stop Dose Admin Clindamycin Phosphate 900 mg in 50 mls @ 75 mls/hr 04/12/25 10:00 Cleocin IV 04/12/25 10:39 INTRAOP ONE Lactated Ringer's 1,000 mls @ 15 mls/hr 04/12/25 08:30 04/12/25 09:02 IV 15 mls/hr .Q48H BARON Administration PFS Medical History (Updated 04/04/25 @ 08:23 by Stacy Segal) Post-menopausal Marijuana use Thyroid disease Arthritis Fatty liver Restless legs Dietary restriction History of IBS CPAP (continuous positive airway pressure) dependence Former smoker History of Holter monitoring History of echocardiogram History of atrial fibrillation Diabetes Diarrhea Hemorrhoids Jigna's disease Sleep apnea MRKH syndrome Chronic headaches GERD (gastroesophageal reflux disease) Hyperlipidemia Anxiety Hypertension Home Medications ?Medication ?Instructions ?Recorded ?Last Taken ?Type omeprazole 40 mg capsule,delayed 40 mg PO DAILY 03/11/16 Unknown History release diltiazem HCl 120 mg 360 mg PO QHS 06/14/20 Unknown History capsule,extended release 24 hr escitalopram oxalate 10 mg tablet 20 mg PO DAILY 07/06/20 Unknown History (Lexapro) methimazole 5 mg tablet 5 mg PO QHS 02/05/24 Unknown History Allergy/AdvReac Type Severity Reaction Status Date / Time hydrocodone (From Vicodin) Allergy Unknown Verified 04/12/25 08:53 Penicillins (PCN) Allergy Rash Verified 04/12/25 08:53 Family History Mother Atrial fibrillation Father Multiple myeloma Surgical History (Updated 04/04/25 @ 08:23 by Stacy Segal) History of colonoscopy History of esophagogastroduodenoscopy (EGD) Total knee replacement status Status post right partial knee replacement S/P tonsillectomy Social History household members: spouse Smoking Status: Former smoker Tobacco: How many years used: 20 alcohol intake: current details: occasionally substance use type: does not use caffeine: Yes what type of physical activity do you participate in: none seatbelt use: always do you feel safe at home: Yes 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 Physical Exam Const alert, oriented x3 and average body habitus Resp normal respiratory effort, normal air movement and clear to auscultation bilaterally Cardio regular rate, regular rhythm and no murmurs
--- NOTE | 2025-04-12 09:31 | EKG12_ITS ---
Test Reason : PREOP Blood Pressure : */* mmHG Vent. Rate : 73 BPM Atrial Rate : 73 BPM P-R Int : 152 ms QRS Dur : 78 ms QT Int : 412 ms P-R-T Axes : 62 34 48 degrees QTcB Int : 453 ms Normal sinus rhythm Normal ECG Confirmed by TINO UMANZOR, PIERO ([id number]), fashion editor SERINA POON ([id number]) on 04/18/2025 9:45:45 AM Referred By: Alvarado Kirkpatrick Confirmed By: PIERO JIMÉNEZ MD
--- NOTE | 2025-04-12 10:00 | COLBX_PTH ---
PATIENT: NARCISO AVILES [place] [facility] [place][id number] AGE/SX: 54/F ROOM: RE04/12/[address]: Dr. Alvarado Kirkpatrick MD : 1970 BED: DIS: 04/12/2025 SPEC #: [id number] RECD: 04/12/25 12:55 STATUS: ANNABELLE RECastillo #: [id number] TAMIE: 04/12/25 10:[address]: Alvarado Kirkpatrick DEPT: SURGICAL PATHOLOGY RECD BY: Daniel Casanova ENTERED: 04/12/25 14:06 SP TYPE: COLON BX OTHR DR: Dr. Lexis Benson DO Tissues: A - Gastric mucous membrane B - Esophagus, NOS C - Sigmoid colon biopsy Procedures: Immunohistochemical Stains Surgery Specimen Level IV HEADER OPERATION: Colonoscopy, EGD, hemorrhoidectomy PRE-OP DIAGNOSIS: Hemorrhoids TISSUE SUBMITTED: A- Antrum biopsy, B- GE junction biopsy, C- Sigmoid polyp biopsy MICROSCOPIC DIAGNOSIS A. Antrum, biopsy: - Chronic gastritis. - IHC negative for H. pylori organisms. B. GE junction, biopsy: - Squamous mucosa with reactive changes. - No columnar mucosa observed. C. Sigmoid colon, polyp, biopsy: - Hyperplastic polyp. MICROSCOPIC DESCRIPTION Slides are reviewed. All matched controls reacted appropriately. These tests were developed and their performance characteristics determined by [facility]. They may not have been cleared or approved by the U.S. Food and Drug Administration. The FDA has determined that such clearance or approval is not necessary. The above immunohistochemical markers are viewed by the Pathologist. GROSS DESCRIPTION A. Received in fixative is one container labeled with the patient's name and designated Antrum biopsy. The specimen consists of one irregular fragment of charlton tissue that measures 0.4 cm. The specimen is totally submitted in one cassette. B. Received in fixative is one container labeled with the patient's name and designated GE junction biopsy. The specimen consists of three irregular fragments of cahrlton tissue that measure 0.2 to 0.3 cm. The specimen is totally submitted in one cassette. C. Received in fixative is one container labeled with the patient's name and designated Sigmoid polyp biopsy. The specimen consists of two irregular fragments of charlton tissue, each measuring 0.2 cm. The specimen is totally submitted in one cassette. SD 04/12/2025 CPT:11538i5,06455
--- NOTE | 2025-04-12 10:05 | PCM.HP.STD ---
[facility] - General General Date of Admission: 04/12/25 Date of Service: 04/12/25 Chief Complaint: Symptomatic hemorrhoids HPI Narrative NARCISO AVILES, is a 54 F who presents for EGD and colonoscopy as well as a Doppler guided hemorrhoid artery ligation. It has been about 5 years since her last EGD and colonoscopy. She does have a history of polyps. She does have symptomatic internal hemorrhoids for which have offered her a Doppler hemorrhoid ligation [facility] Medical History (Updated 04/04/25 @ 08:23 by Stacy Segal) Post-menopausal Marijuana use Thyroid disease Arthritis Fatty liver Restless legs Dietary restriction History of IBS CPAP (continuous positive airway pressure) dependence Former smoker History of Holter monitoring History of echocardiogram History of atrial fibrillation Diabetes Diarrhea Hemorrhoids Jigna's disease Sleep apnea MRKH syndrome Chronic headaches GERD (gastroesophageal reflux disease) Hyperlipidemia Anxiety Hypertension Home Medications ?Medication ?Instructions ?Recorded ?Last Taken ?Type omeprazole 40 mg capsule,delayed 40 mg PO DAILY 03/11/16 Unknown History release diltiazem HCl 120 mg 360 mg PO QHS 06/14/20 Unknown History capsule,extended release 24 hr escitalopram oxalate 10 mg tablet 20 mg PO DAILY 07/06/20 Unknown History (Lexapro) methimazole 5 mg tablet 5 mg PO QHS 02/05/24 Unknown History Allergy/AdvReac Type Severity Reaction Status Date / Time hydrocodone (From Vicodin) Allergy Unknown Verified 04/12/25 08:53 Penicillins (PCN) Allergy Rash Verified 04/12/25 08:53 Family History Mother Atrial fibrillation Father Multiple myeloma Surgical History (Updated 04/04/25 @ 08:23 by Stacy Segal) History of colonoscopy History of esophagogastroduodenoscopy (EGD) Total knee replacement status Status post right partial knee replacement S/P tonsillectomy Social History household members: spouse Smoking Status: Former smoker Tobacco: How many years used: 20 alcohol intake: current details: occasionally substance use type: does not use caffeine: Yes what type of physical activity do you participate in: none seatbelt use: always do you feel safe at home: Yes 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 Vital Signs Vital Signs Vital Signs: 04/12/25 08:54 04/12/25 08:54 04/12/25 09:15 Temperature 97.0 F L 97.0 F L Temperature Source Temporal Pulse Rate 87 87 Respiratory Rate 16 16 Respiratory Pattern Normal Blood Pressure 118/92 H 118/92 H Blood Pressure Mean 100 Blood Pressure Source Monitor Blood Pressure Position Semi-Fowlers Blood Pressure Location Right Arm Pulse Ox 98 98 Oxygen Delivery Method Room Air Room Air Weight Weight: 184 lb 15.485 oz Body Mass Index (BMI) 32.8 Physical Exam Const alert, oriented x3 and no apparent distress Assessment & Plan Assessment/Plan (1) Hemorrhoids: (2) GERD (gastroesophageal reflux disease): PLAN: Plan The patient is a 54-year-old female in need of a EGD, colonoscopy and a Doppler guided hemorrhoid artery ligation surgery. We discussed the details of the planned procedures including risk benefits and alternatives. She wishes to proceed. This will begin momentarily D/C Safety Score for UGIB Assessment Meghana-Blatchford Bleeding Score (GBS): Stratifies upper GI bleeding patients who are low-risk and candidates for outpatient management. Hemoglobin, BUN, Recent Vital Signs: Pulse Rate 87 Blood Pressure 118/92 Total Risk Score: 1 Score Interpretation: Score of 0: A GBS of 0 is a ?Low Risk? GI bleed, and is highly sensitive (99.6% in a 2007 retrospective study) for predicting which patients did not require any ?medical intervention?: blood transfusion, endoscopy, or surgery. This was confirmed in a 2009 [facility] study where patients with a score of 0 were actually discharged and had no GI bleeding mortality at 6 month followup Score above 0: A GBS greater than zero suggests a ?High Risk? GI bleed that is likely to require ?medical intervention?: transfusion, endoscopy, or surgery. A higher GBS also correlated with a higher likelihood of needing intervention Scores >/= 6 are associated with >50% risk of needing intervention D/C Safety Score for LGIB Assessment Assessment Tool: Readmission and adverse event risk in patients with acute lower GI bleeding. Age, in years: 40-69 Hemoglobin and Recent Vital Signs: Pulse Rate 87 04/12/25 09:15 Blood Pressure 118/92 04/12/25 09:15 Probability of safe discharge: 99% Total Risk Score: 1 Score Interpretation: Probability Percentage of safe discharge (absence of rebleeding, blood transfusion, therapeutic intervention, 28 day readmission, or ) Score of 8 or below: Consider discharge, with appropriate precautions. Score of 9 or above: Discharge NOT recommended. Consider admission with further workup and resuscitation as necessary.
[2025-04-12] MEDS: Midazolam 2 MG/2 ML Syringe IV (10:20)
[2025-04-12] MEDS: Lactated Ringers 1,000 ML 1000 ML IV (10:20)
[2025-04-12] MEDS: fentaNYL 100 MCG/2 ML Ampul IV (10:28)
[2025-04-12] MEDS: Lidocaine 1% (5 ml sdv) 5 ML Vial IV (10:28)
[2025-04-12] MEDS: Bupiv/Epi 0.25% 30 ML Vial (11:42)
--- NOTE | 2025-04-12 11:55 | PCM.POST.ANE ---
Anesthesia: Postop Eval I Current Vital Signs Temperature: 97.4 F Pulse Rate: 89 Blood Pressure: 155/77 Respiratory Rate: 20 Pulse Ox: 98 Oxygen Delivery Method: Room Air Assessment Airway patent: Yes Spontaneous unlabored respirations: Yes Mental status: Awake and Calm nausea: No Vomiting: No Anesthesia Complication: No Fluid Hydration Crystalloid volume administer (ml): 900 Total IV fluid infused: 900 Progress Note Anesthesia document: Postop Eval 1 completed: Yes
--- NOTE | 2025-04-12 12:16 | EX.PCM.DISCH ---
Discharge Instructions Diet Discharge Diet: Light diet - advance as tolerated Activity Discharge Activity: Return to Normal Activity, May Shower and May Take a Tub Bath May shower in (days): 1 Lifting Restrictions: Avoid lifting over 50 pounds for 3 weeks Dressing / Incision Call your doctor if your incision/area has: Continuous Slow Oozing, Sudden Increased Bleeding, Increased Pain/ Swelling, Increased Redness, Foul Smelling Discharge and Swelling at the incision site Call your doctor if you observe: Fever of 101 or Higher Cleanse incision/area with: Soap & Water Follow Up Care Please Follow Up With: Alvarado Kirkpatrick MD When: 2 to 3 weeks. Please call office to schedule appointment Test Results: Test results from this visit will be discussed in further detail at your follow-up appointment, if applicable. Discharge Plan Admission Primary Reason for Your Visit: EGD, colonoscopy and hemorrhoid surgery Attending Provider: Alvarado Kirkpatrick Primary Care Provider: Lexis Benson Instructions Print Language: Armenian Discharge Orders/Prescriptions Prescriptions: New tramadol 25 mg tablet 25 mg PO Q4H PRN (Reason: pain) 4 Days Qty: 10 0RF ondansetron 4 mg tablet,disintegrating 4 mg PO Q8H PRN (Reason: nausea and vomiting) Qty: 10 0RF Continued diltiazem HCl 120 mg capsule,extended release 24hr 360 mg PO QHS escitalopram oxalate [Lexapro] 10 mg tablet 20 mg PO DAILY omeprazole 40 MG capsule 40 mg PO DAILY methimazole 5 mg tablet 5 mg PO QHS Referrals / Follow Up: Lexis Benson DO [Primary Care Provider, Family Practice] Disposition Disposition (needs filled in before D/C Order can be placed): Home, Self Care
--- NOTE | 2025-04-12 13:11 | OP.EGD_ITS ---
Patient Name: Cris Evangelista Procedure Date: 04/12/2025 9:58 AM Date of : 1970 Age: 54 Procedure: Upper GI endoscopy Indications: Suspected esophageal reflux Providers: Alvarado Kirkpatrick MD Referring MD: Alvarado Kirkpatrick MD Medicines: Monitored Anesthesia Care Patient Profile: Refer to note in patient chart for documentation of history and physical. Complications: No immediate complications. Estimated blood loss: Minimal. Procedure: Pre-Anesthesia Assessment: - Prior to the procedure, a History and Physical was performed, and patient medications and allergies were reviewed. The patient's tolerance of previous anesthesia was also reviewed. The risks and benefits of the procedure and the sedation options and risks were discussed with the patient. All questions were answered, and informed consent was obtained. Prior Anticoagulants: The patient has taken no anticoagulant or antiplatelet agents. ASA Grade Assessment: II - A patient with mild systemic disease. After reviewing the risks and benefits, the patient was deemed in satisfactory condition to undergo the procedure. After obtaining informed consent, the endoscope was passed under direct vision. Throughout the procedure, the patient's blood pressure, pulse, and oxygen saturations were monitored continuously. The gastroscope was introduced through the mouth, and advanced to the second part of duodenum. The upper GI endoscopy was accomplished without difficulty. The patient tolerated the procedure well. Moderate Sedation: See the other procedure note for documentation of moderate sedation with intraservice time. Scope In: 10:32:16 AM Scope Out: 10:38:42 AM Total Procedure Duration Time 0 hours 6 minutes 26 seconds Findings: The in the duodenum was normal. Localized mild inflammation characterized by erythema was found in the gastric antrum. This was biopsied with a cold forceps for Helicobacter pylori testing. Verification of patient identification for the specimen was done by the nurse using the patient's name, date and medical record number. Estimated blood loss was minimal. A medium-sized hiatal hernia was present. Estimated blood loss: none. The examined esophagus was normal. Mucosa was biopsied with a cold forceps for histology randomly at the gastroesophageal junction. Impression: - Normal. - Chronic gastritis. Biopsied. - Medium-sized hiatal hernia. - Normal esophagus. Biopsied. Recommendation: - Discharge patient to home (ambulatory). - High fiber diet. - Await pathology results. - Repeat upper endoscopy for surveillance based on pathology results. - Return to my office PRN. - Continue present medications. Procedure Code(s): --- Professional --- 72025, Esophagogastroduodenoscopy, flexible, transoral; with biopsy, single or multiple Diagnosis Code(s): --- Professional --- K44.9, Diaphragmatic hernia without obstruction or gangrene K29.50, Unspecified chronic gastritis without bleeding CPT copyright 2021 [employer]. All rights reserved. The codes documented in this report are preliminary and upon information coder review may be revised to meet current compliance requirements. Alvarado Kirkpatrick MD 04/12/2025 1:11:09 PM This report has been signed electronically. Number of Addenda: 0 Note Initiated On: 04/12/2025 9:58 AM
--- NOTE | 2025-04-12 13:11 | OP.PROVAT_ITS ---
04/12/2025 Lexis Benson [address] [place] [address] Re : Upper GI endoscopy procedure for Cris Evangelista Dear Dr. Benson This procedure was performed on Saturday, April 12, 2025. My impressions and recommendations are as follows: Impressions : - Normal. - Chronic gastritis. Biopsied. - Medium-sized hiatal hernia. - Normal esophagus. Biopsied. Recommendations : - Discharge patient to home (ambulatory). - High fiber diet. - Await pathology results. - Repeat upper endoscopy for surveillance based on pathology results. - Return to my office PRN. - Continue present medications. My findings are described in the full procedure note, which is enclosed. If I can be of further assistance, please feel free to contact me at . Sincerely, Alvarado Kirkpatrick MD 04/12/2025 1:11:09 PM This report has been signed electronically.
--- NOTE | 2025-04-12 13:15 | OP.PROVAT_ITS ---
04/12/2025 Lexis Benson [address] [place] [address] Re : Colonoscopy procedure for Cris Evangelista Dear Dr. Benson This procedure was performed on Saturday, April 12, 2025. My impressions and recommendations are as follows: Impressions : - Non-bleeding external and internal hemorrhoids. - One 3 mm polyp in the sigmoid colon, removed with a cold biopsy forceps. Resected and retrieved. - The examination was otherwise normal on direct and retroflexion views. Recommendations : - Discharge patient to home (ambulatory). - High fiber diet. - Await pathology results. - Repeat colonoscopy in 5 years for surveillance. - Return to my office PRN. - Continue present medications. My findings are described in the full procedure note, which is enclosed. If I can be of further assistance, please feel free to contact me at . Sincerely, Alvarado Kirkpatrick MD 04/12/2025 1:14:18 PM This report has been signed electronically.
--- NOTE | 2025-04-12 13:15 | OP.COLON_ITS ---
Patient Name: Cris Evangelista Procedure Date: 04/12/2025 10:38 AM Date of : 1970 Age: 54 Procedure: Colonoscopy Indications: High risk colon cancer surveillance: Personal history of colonic polyps Providers: Alvarado Kirkpatrick MD Referring MD: Alvarado Kirkpatrick MD Medicines: Monitored Anesthesia Care Patient Profile: Refer to note in patient chart for documentation of history and physical. Last Colonoscopy: 5 years ago. Complications: No immediate complications. Procedure: Pre-Anesthesia Assessment: - Prior to the procedure, a History and Physical was performed, and patient medications and allergies were reviewed. The patient's tolerance of previous anesthesia was also reviewed. The risks and benefits of the procedure and the sedation options and risks were discussed with the patient. All questions were answered, and informed consent was obtained. Prior Anticoagulants: The patient has taken no anticoagulant or antiplatelet agents. ASA Grade Assessment: II - A patient with mild systemic disease. After reviewing the risks and benefits, the patient was deemed in satisfactory condition to undergo the procedure. After I obtained informed consent, the scope was passed under direct vision. Throughout the procedure, the patient's blood pressure, pulse, and oxygen saturations were monitored continuously. The adult colonoscope was introduced through the anus and advanced to the cecum, identified by appendiceal orifice and ileocecal valve. The ileocecal valve, appendiceal orifice, and rectum were photographed. The entire colon was well visualized. The colonoscopy was performed without difficulty. The patient tolerated the procedure well. The quality of the bowel preparation was adequate. Moderate Sedation: See the other procedure note for documentation of moderate sedation with intraservice time. Scope In: 10:43:25 AM Scope Withdrawal Time 0 hours 8 minutes 21 seconds Scope Out: 10:59:17 AM Total Procedure Duration Time 0 hours 15 minutes 52 seconds Findings: The perianal and digital rectal examinations were normal. Non-bleeding external and internal hemorrhoids were found during retroflexion. The hemorrhoids were moderate. A 3 mm polyp was found in the sigmoid colon. The polyp was sessile. The polyp was removed with a cold biopsy forceps. Resection and retrieval were complete. Verification of patient identification for the specimen was done by the nurse using the patient's name, date and medical record number. Estimated blood loss was minimal. The exam was otherwise without abnormality on direct and retroflexion views. Impression: - Non-bleeding external and internal hemorrhoids. - One 3 mm polyp in the sigmoid colon, removed with a cold biopsy forceps. Resected and retrieved. - The examination was otherwise normal on direct and retroflexion views. Recommendation: - Discharge patient to home (ambulatory). - High fiber diet. - Await pathology results. - Repeat colonoscopy in 5 years for surveillance. - Return to my office PRN. - Continue present medications. Procedure Code(s): --- Professional --- 51915, Colonoscopy, flexible; with biopsy, single or multiple Diagnosis Code(s): --- Professional --- Z86.010, Personal history of colonic polyps D12.5, Benign neoplasm of sigmoid colon K64.8, Other hemorrhoids CPT copyright 2021 [employer]. All rights reserved. The codes documented in this report are preliminary and upon rejected items clerk review may be revised to meet current compliance requirements. Alvarado Kirkpatrick MD 04/12/2025 1:14:18 PM This report has been signed electronically. Number of Addenda: 0 Note Initiated On: 04/12/2025 10:38 AM
--- NOTE | 2025-04-12 13:41 | PCM.OPRPT ---
Procedures Digestive 40xxx-49xxx: [id number] Excision, Anus w/US guidance Operative Report (Standard) Operative Information Date of Procedure: 04/12/25 Pre-Operative Diagnosis: Symptomatic hemorrhoids Post-Operative Diagnosis: Same Surgery/Procedure Performed: Doppler guided hemorrhoid artery ligation surgery. 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 Motor Equipment Sergeant: Nina Santiago Tasks completed by cosmetic sales assistant: Other Additional certified ophthalmic assistant?: No Type of Anesthesia: General and Local RN Documented Start/Stop Times: Operation Date: 04/12/25 10:00 Case Time Into Pre-Op 04/12/25 08:21 Into Room 04/12/25 10:20 Anesthesia Start 04/12/25 10:31 Procedure Start 04/12/25 11:21 Procedure End 04/12/25 11:43 Anesthesia End 04/12/25 11:49 Out of Room 04/12/25 11:49 Into Recovery 04/12/25 11:51 Into Phase II Recovery 04/12/25 12:48 Out of Recovery 04/12/25 12:48 Out of Phase II 04/12/25 13:40 Procedure Start Time: 11:21 Procedure Stop Time: 11:43 Select all DRAINS/GRAFTS/IMPLANTS that apply: None Estimated Blood Loss: 10 mL Specimen collected: No Description of surgery: The patient is a 54-year-old female who was recently seen through the office with symptomatic hemorrhoids. She was complaining of discomfort and occasional bleeding. She had previously tried conservative measures without relief. I offered her a Doppler guided hemorrhoid artery ligation surgery. Patient also requested EGD and colonoscopy. Patient was brought to the operating room today following informed consent she was placed supine on the operative table with arms outstretched and arm boards. A general endotracheal anesthesia was induced. Her legs were placed in a modified lithotomy position with appropriate padding. EGD and colonoscopy were successfully performed. The details of these procedures were documented in the [employer] system. Once these were performed the Doppler guided hemorrhoid artery ligation surgery was then performed. The Doppler probe was inserted first at the 12 o'clock position and was rotated slowly in a clockwise direction such that at each point in which a dopplerable signal was noted, 3-0 Vicryl suture was placed in a finger rate manner. A total of 9 sutures were placed in this manner. This effectively tied off the end flow of blood to the internal hemorrhoids. At the completion of the procedure a total of 30 cc of local anesthetic were injected in a bilateral pudendal block manner. She was awakened anesthesia and taken recovery in good condition. Surgical Findings: Internal hemorrhoids Complications Complications: No
--- NOTE | 2025-04-12 15:37 | POSTOPAN2_ITS ---
Anesthesia Postop Eval I Sum Postop Eval Completion status Anesthesia document: Postop Eval 1 completed: Yes Anesthesia Postop Eval I Summary Anesthesia Postop Eval I Summary: Anesthesia Postop Eval I: Assessment Summary Airway patent Yes 04/12/25 11:55 PLASTIC AND RECONSTRUCTIVE SURGEON.[email or web address] Spontaneous unlabored Yes 04/12/25 11:55 PLASTIC AND RECONSTRUCTIVE SURGEON.[email or web address] respirations Mental status Awake,Calm 04/12/25 11:55 PLASTIC AND RECONSTRUCTIVE SURGEON.[email or web address] nausea No 04/12/25 11:55 PLASTIC AND RECONSTRUCTIVE SURGEON.[email or web address] Vomiting No 04/12/25 11:55 PLASTIC AND RECONSTRUCTIVE SURGEON.[email or web address] Anesthesia Postop Eval I: Fluid Summary Crystalloid volume administer 900 04/12/25 11:55 PLASTIC AND RECONSTRUCTIVE SURGEON.[email or web address] (ml) Colloids volume administered ( ml) Blood Product volume administered (ml) Total IV fluid infused 900 04/12/25 11:55 PLASTIC AND RECONSTRUCTIVE SURGEON.[email or web address] Anesthesia Postop Eval I: Summary Notes Anesthesia Complication No 04/12/25 11:55 PLASTIC AND RECONSTRUCTIVE SURGEON.[email or web address] Anesthesia Complication Comment: Post-operative progress note Anesthesia: Postop Eval II Evaluation Mental status: Awake Pain Level: 0 nausea: No Vomiting: No Complications Anesthesia Complication: No
--- NOTE | 2025-04-12 15:37 | PCM.POSTANE2 ---
Anesthesia Postop Eval I Sum Postop Eval Completion status Anesthesia document: Postop Eval 1 completed: Yes Anesthesia Postop Eval I Summary Anesthesia Postop Eval I Summary: Anesthesia Postop Eval I: Assessment Summary Airway patent Yes 04/12/25 11:55 [email or web address] Spontaneous unlabored Yes 04/12/25 11:55 GASATERIA [email or web address] respirations Mental status Awake,Calm 04/12/25 11:55 GASATERIA [email or web address] nausea No 04/12/25 11:55 GASATERIA [email or web address] Vomiting No 04/12/25 11:55 GASATERIA [email or web address] Anesthesia Postop Eval I: Fluid Summary Crystalloid volume administer 900 04/12/25 11:55 [email or web address] (ml) Colloids volume administered ( ml) Blood Product volume administered (ml) Total IV fluid infused 900 04/12/25 11:55 GASATERIA [email or web address] Anesthesia Postop Eval I: Summary Notes Anesthesia Complication No 04/12/25 11:55 GASATERIA [email or web address] Anesthesia Complication Comment: Post-operative progress note Anesthesia: Postop Eval II Evaluation Mental status: Awake Pain Level: 0 nausea: No Vomiting: No Complications Anesthesia Complication: No
== END 2025-04-12 13:40 | disposition home or self-care (01) ==
LOC: SDC 08:20 → AC 08:23
PROVIDERS: PCP Family Medicine; Referring Provider Surgery; Visit Provider Surgery
PROC: (CPT 46948; principal; 2025-04-12 09:45)
PROC: 0DJD8ZZ Inspection of Lower Intestinal Tract, Via Natural or Artificial Opening Endoscopic (ICD-10-PCS; CPT 45378; principal; 2025-04-12 09:55)
DX: K64.8 Other hemorrhoids (principal); I48.0 Paroxysmal atrial fibrillation; E11.9 Type 2 diabetes mellitus without complications; K29.50 Unspecified chronic gastritis without bleeding; K44.9 Diaphragmatic hernia without obstruction or gangrene; K63.5 Polyp of colon; K64.4 Residual hemorrhoidal skin tags; K21.9 Gastro-esophageal reflux disease without esophagitis; I10 Essential (primary) hypertension; E06.3 Autoimmune thyroiditis; F41.9 Anxiety disorder, unspecified; G47.33 Obstructive sleep apnea (adult) (pediatric); Z86.0100 Personal history of colon polyps, unspecified; Z79.890 Hormone replacement therapy; Z79.899 Other long term (current) drug therapy; Z87.891 Personal history of nicotine dependence
CPT/HCPCS: 46948; 45380; 43239; 00902; 82962; 88305; 88342; 93005